=== PATIENT | male | born 1950 | race Caucasian/White ===

== ENCOUNTER 2016-11-08 17:17 | Emergency (ER) | payer OTHER, MEDICARE ==
[2016-11-08] MEDS: SODIUM CHLORIDE 0.9% 1,000 ML IV STA (17:17)
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
[2016-11-08 17:34] LABS: Glucose,Whole Blood 81 mg/dL (75-99)
--- NOTE | 2016-11-08 17:43 | XR ---
EXAMINATION TYPE: XR chest 1V portable DATE OF EXAM: 11/08/2016 5:32 PM HISTORY: Shortness of breath. COMPARISON: None. TECHNIQUE: Single view of the chest is submitted. FINDINGS: Demonstrated are scattered senescent parenchymal change. There is no evidence for focal infiltrate. The heart is stable. Hilar and mediastinal structures are within normal limits. Degenerative changes are seen of the dorsal spine. IMPRESSION: 1. Chronic changes without evidence for acute pulmonary disease.
--- NOTE | 2016-11-08 17:43 | XR ---
EXAMINATION TYPE: XR pelvis AP view DATE OF EXAM: 11/08/2016 5:32 PM CLINICAL HISTORY: pain TECHNIQUE: Single view the pelvis is submitted. FINDINGS: No evidence for fracture, dislocation or bony lesion. Joint spaces are well-preserved. S I joints appear symmetric. IMPRESSION: 1. No acute fracture or dislocation seen. ICD 10 NO FRACTURE, INITIAL EVALUATION
[2016-11-08 18:10] LABS: Basophils % (A) 1 %; CH 32.3; CHCM 34.4; Eosinophils # (A) 0.2 k/uL (0-0.7); Eosinophils % (A) 3 %; HCT 39.6 % (39.0-53.0); HDW 2.65; HGB 13.3 gm/dL (13.0-17.5); Luc # (Auto) 0.14; Luc % (Auto) 2; Lymphocytes # (A) 0.9 k/uL (1.0-4.8); Lymphocytes % (A) 13 %; MCH 31.7 pg (25.0-35.0); MCHC 33.7 g/dL (31.0-37.0); MCV 94.3 fL (80.0-100.0); Mean Platelet Volume 6.5; Monocytes # (A) 0.4 k/uL (0-1.0); Monocytes % (A) 6 %; Neutrophils # (A) 5.1 k/uL (1.3-7.7); Neutrophils % (A) 75 %; RDW 13.9 % (11.5-15.5); WBC 6.8 k/uL (3.8-10.6); WBC (Perox) 7.05
[2016-11-08] MEDS: MORPHINE SULFATE 4 MG/ML SYRINGE IVP STA (18:13)
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
[2016-11-08 18:21] LABS: ALT 37 U/L (21-72); AST 33 U/L (17-59); Alcohol <10 mg/dL; Alkaline Phosphatase 89 U/L (38-126); Amylase 80 U/L (30-110); Anion Gap 9 mmol/L; Blood Urea Nitrogen 22 mg/dL (9-20); Calcium 9.2 mg/dL (8.4-10.2); Carbon Dioxide 24 mmol/L (22-30); Chloride 106 mmol/L (98-107); Glucose 90 mg/dL (74-99); INR 1.1 (<1.1); Non-African American GFR(MDRD) >60 (>60 ml/min/1.73 sqM); Partial Thromboplastin Time 28.3 sec (22.0-30.0); Potassium 4.3 mmol/L (3.5-5.1); Sodium 139 mmol/L (137-145); Total Bilirubin 0.8 mg/dL (0.2-1.3); Total Protein 6.8 g/dL (6.3-8.2)
[2016-11-08 18:30] LABS: Creatine Kinase 319 U/L (55-170)
--- NOTE | 2016-11-08 18:41 | XR ---
EXAMINATION TYPE: XR knee complete RT DATE OF EXAM: 11/08/2016 6:37 PM CLINICAL HISTORY: pain TECHNIQUE: Frontal, lateral and oblique images of the right foot are obtained. COMPARISON: None. FINDINGS: There is no acute fracture/dislocation evident. Chronic appearing subchondral lesion media l femoral condyle. Small joint effusion noted. Mild degenerative narrowing medial tibiofemoral joint space. IMPRESSION: There is no acute fracture or dislocation. ICD 10 NO FRACTURE, INITIAL EVALUATION
[2016-11-08 18:44] LABS: Troponin I <0.012 ng/mL (0.000-0.034)
[2016-11-08 18:45] LABS: Creatine Kinase MB 5.3 ng/mL (0.0-2.4)
[2016-11-08 19:57] VITALS: BP 148/93; PULSE 73; RESP 18; TEMP 97.6
== END 2016-11-08 19:56 | disposition home or self-care (01) ==
LOC: EC 17:17
DX: S00.03XA Contusion of scalp, initial encounter (principal); M25.561 Pain in right knee; E78.5 Hyperlipidemia, unspecified; I10 Essential (primary) hypertension; G89.29 Other chronic pain; Z79.02 Long term (current) use of antithrombotics/antiplatelets; Z79.82 Long term (current) use of aspirin; Z79.899 Other long term (current) drug therapy; Z98.890 Other specified postprocedural states; V43.52XA Car driver injured in collision with other type car in traffic accident, initial encounter; Y92.410 Unspecified street and highway as the place of occurrence of the external cause
CPT/HCPCS: 36415; 93005; 86900; 86901; 80053; 82150; 82550; 82553; 83690; 84484; 85025; 85610; 85730; 86850; 80320; 71010; 72170; 73562; 72125; 70486; 70450; 99285; 96374; 96361 ×3; J2270

== ENCOUNTER → 2016-12-13 | Outpatient (CLI) | payer OTHER ==
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
== END | disposition home or self-care (01) ==
LOC: RADMRIMAIN 18:39
PROVIDERS: ATTEND Family Medicine
DX: R51 Headache (principal)
CPT/HCPCS: 70553; A9577

== ENCOUNTER → 2017-02-01 | Outpatient (CLI) | payer MEDICARE | END | disposition home or self-care (01) | LOC: LABPAT 15:29 | PROVIDERS: ATTEND Orthopaedic Surgery | DX: Z01.812 Encounter for preprocedural laboratory examination (principal) | CPT/HCPCS: 87070 ==

== ENCOUNTER → 2017-02-06 | Outpatient (CLI) | payer MEDICARE ==
[2017-02-06 18:56] LABS: Basophils % (A) 0 %; CH 31.9; CHCM 34.4; Eosinophils % (A) 0 %; HCT 38.8 % (39.0-53.0); HDW 2.49; HGB 13.4 gm/dL (13.0-17.5); Luc # (Auto) 0.05; Luc % (Auto) 1; Lymphocytes # (A) 0.4 k/uL (1.0-4.8); Lymphocytes % (A) 6 %; MCH 32.2 pg (25.0-35.0); MCHC 34.6 g/dL (31.0-37.0); MCV 93.2 fL (80.0-100.0); Mean Platelet Volume 7.6; Monocytes # (A) 0.3 k/uL (0-1.0); Monocytes % (A) 5 %; Neutrophils # (A) 5.7 k/uL (1.3-7.7); Neutrophils % (A) 88 %; Potassium 4.5 mmol/L (3.5-5.1); RBC 4.17 m/uL (4.30-5.90); RDW 13.1 % (11.5-15.5); WBC 6.5 k/uL (3.8-10.6); WBC (Perox) 6.51
[2017-02-06 18:58] LABS: Partial Thromboplastin Time 30.1 sec (22.0-30.0); Prothrombin Time 10.4 sec (9.0-12.0)
== END | disposition home or self-care (01) ==
LOC: MMGSC 11:49
PROVIDERS: ATTEND Family Medicine
DX: Z01.812 Encounter for preprocedural laboratory examination (principal)
CPT/HCPCS: 36415; 80051; 85025; 85610; 85730

== ENCOUNTER → 2017-02-12 | Outpatient (CLI) | payer OTHER ==
--- NOTE | 2017-02-12 15:44 | MR ---
EXAMINATION TYPE: MR angio head wo con DATE OF EXAM: 02/12/2017 COMPARISON: NONE HISTORY: headaches and cervicalgia per order. TECHNIQUE: Time of flight images focusing on the [place] of [place] were performed without contrast.. 2-D and 3-D postprocessing imaging is performed. FINDINGS: There is dominant left vertebral artery. Vertebral arteries are patent to basilar junction. There is no significant stenosis or aneurysmal change in the posterior circulation. There are hypopl astic posterior communicating arteries noted bilaterally. Images of the anterior circulation show patent anterior communicating artery. There is tiny eccentric aneurysm at right anterior communicating artery along right anterior medial margin measuring 9 mm on image 77 series 301 near right origin. There is no significant focal stenosis or other aneurysmal ch lawanda identified. 

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
== END | disposition home or self-care (01) ==
LOC: RADMRIMAIN 14:36
PROVIDERS: ATTEND Physician Assistant
DX: M43.12 Spondylolisthesis, cervical region (principal); M47.812 Spondylosis without myelopathy or radiculopathy, cervical region; R51 Headache
CPT/HCPCS: 70544; 72141

== ENCOUNTER 2017-02-20 07:45 | Inpatient (IN) | payer MEDICARE ==
[2017-02-13 17:07] VITALS: BMI 28.1
--- NOTE | 2017-02-19 14:57 | HP ---
CHIEF COMPLAINT: Right knee pain. 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 He notes he limps. In addition, he has swelling and pain worse with activity. It does significantly limit him. He had a previous arthroscopy last year. PAST MEDICAL HISTORY: Significant for coronary artery disease, hypertension, arthritis. Past surgical history significant for left shoulder arthroscopy in addition to right knee arthroscopy and cardiac catheterization. Current medications: 1. Losartan. 2. [place]. 3. Plavix. 4. Aspirin. 5. Lipitor. 6. Toprol. ALLERGIES: BONNIE INHIBITORS. FAMILY HISTORY: Negative. SOCIAL HISTORY: Negative for current tobacco or alcohol use. 16 point review of systems reviewed and is noncontributory. On examination, the patient is approximately 5 feet 8 inches, 195 pounds of mesomorphic habitus. HEENT Exam is nonfocal. Neck is supple. He has painless passive motion of the right hip. Straight leg raise is negative. Active motion of the right knee -10 to 130 degrees of flexion. He has a mild effusion. He is tender about the medial joint line. Collaterals are stable. Lachmans negative. [place] is equivocal. His distal neurovascular exam appears to be intact. X-rays to include weight bearing, notch, lateral and merchant views of the right knee obtained in the office shows severe medial compartment narrowing. There is flattening of the medial femoral condyle. IMPRESSION: Right knee severe medial compartment osteoarthrosis. RECOMMENDATIONS: I talked to the patient at length regarding his treatment options. At this point, he opts to proceed with surgery. We will plan on proceeding with right total knee arthroplasty. Risks and benefits are discussed at length in laymans terms. The patient underwent preoperative medical evaluation by Dr. Guajardo in addition to preoperative cardiac evaluation and we will likely reinstitute his Plavix postoperatively. SAMINA
[~2017-02-20 07:45] MED LIST: ACETAMINOPHEN TAB 500 MG TAB PO ONE; FAMOTIDINE 20 MG/2 ML VIAL IV PRN; HYDROmorphone 1 MG/ML 1 ML SYRINGE IVP PRN; LIDOCAINE 1% 20 ML VIAL (10MG/ML) FOR IV START INTRADERMA PRN; MELOXICAM 7.5 MG TAB PO ONE; MIDAZOLAM 2 MG/2 ML VIAL IV PRN; ONDANSETRON 4 MG/2 ML VIAL IVP PRN; TRANEXAMIC ACID 1,000 MG in SODIUM CHLORIDE 0.9% 100 ML IVPB ONE; ceFAZolin 2 GM in SODIUM CHLORIDE 0.9% 100 ML IVPB ONE
[2017-02-20] MEDS: LACTATED RINGERS 1,000 ML IV SCH ×2 (09:19→20:05)
[2017-02-20] MEDS ORDERED: fentaNYL (PF) 50 MCG/ML 2 ML AMP IV ONE (09:41)
[2017-02-20] MEDS ORDERED: ROPIVACAINE 246.25 MG, EPINEPHrine 0.5 MG, KETOROLAC 30 MG, cloNIDine HCL/PF 80 MCG, WA... MISCELLANE ONE ×5 (09:52)
--- NOTE | 2017-02-20 10:06 | P.ONQ ---
Anesthesiology Proc Note - PNB - Peripheral Nerve Block Performed Right Adductor Canal Infusion Time Out Performed: Yes Indication: Acute Post-Operative Pain, Analgesia Specifically requested for management of pain by : Micah Thompson Sedation Type: Sedate with meaningful contact maintained Preparation: Sterile Prep Position: Supine Catheter: Indwelling Needle Types: Other (see comment) (PaJunk) Needle Size: 100mm (4") Needle Gauge: 20 Technique: Ultrasound Injectate: 0.5% Ropivacaine (see comment for volume) (20 cc) Blood Aspirated: No Pain Paresthesia on Injection Noted: No Resistance on Injection: Normal Events: Uneventful and Well Tolerated
[2017-02-20] MEDS ORDERED: ROPIVACAINE 1,100 MG, SODIUM CHLORIDE 0.9% 330 ML MISCELLANE PRN ×2 (10:07)
[2017-02-20] MEDS ORDERED: ceFAZolin 3,000 MG in SODIUM CHLORIDE 0.9% IRRIGATIO 3,000 ML IRRIGATION ONE (10:14)
[2017-02-20] MEDS ORDERED: MIDAZOLAM 2 MG/2 ML VIAL ONE (10:14)
[2017-02-20] MEDS ORDERED: ePHEDrine 50 MG/ML 1 ML AMP ONE (10:14)
[2017-02-20] MEDS ORDERED: PROPOFOL 10 MG/ML 20 ML VIAL IV ONE (10:14)
[2017-02-20] MEDS ORDERED: LIDOCAINE 1% INJ 10MG/ML (20 ML MDV) ONE (10:14)
[2017-02-20] MEDS ORDERED: LACTATED RINGERS 1,000 ML IV ONE (10:54)
[2017-02-20] MEDS ORDERED: ACETAMINOPHEN TAB 325 MG TAB PO PRN (12:00)
[2017-02-20] MEDS ORDERED: HYDROmorphone 1 MG/ML 1 ML SYRINGE IVP PRN (12:00)
[2017-02-20] MEDS ORDERED: NALOXONE 0.4 MG/ML 1 ML VIAL IV PRN (12:00)
[2017-02-20] MEDS ORDERED: ONDANSETRON 4 MG/2 ML VIAL IVP PRN (12:00)
[2017-02-20] MEDS ORDERED: HYDROcodone/APAP 7.5-325MG 1 EACH TAB PO PRN (12:00)
[2017-02-20] MEDS ORDERED: MAGNESIUM HYDROXIDE 2,400 MG/10 ML CUP PO PRN (12:00)
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
--- NOTE | 2017-02-20 12:40 | XR ---
EXAMINATION TYPE: XR knee limited RT DATE OF EXAM: 02/20/2017 CLINICAL HISTORY: pain TECHNIQUE: Three views of the right knee are obtained. COMPARISON: None. FINDINGS: There is no acute fracture/dislocation. The tri-compartment joint spaces appear within no rmal limits. The overlying soft tissue appears unremarkable. IMPRESSION: There is no acute fracture or dislocation.ICD 10 NO FRACTURE, INITIAL EVALUATION
[2017-02-20] MEDS: traMADol 50 MG TAB PO SCH ×3 (16:22→21:02)
[2017-02-20] MEDS: LOSARTAN 50 MG TAB PO SCH (16:26)
[2017-02-20] MEDS: ceFAZolin 2 GM in SODIUM CHLORIDE 0.9% 100 ML IVPB SCH (16:26)
[2017-02-20] MEDS: ISOSORBIDE MONONITRATE ER 30 MG TAB.ER.24H PO SCH (16:26)
[2017-02-20] MEDS ORDERED: hydrALAZINE HCL 20 MG/ML 1 ML VIAL IVP PRN (16:34)
[2017-02-20] MEDS: HYDROcodone/APAP 7.5-325MG 1 EACH TAB PO PRN (17:05)
[2017-02-20] MEDS: SENNOSIDES-DOCUSATE SODIUM 1 EACH TAB PO SCH (20:03)
[2017-02-20 20:28] VITALS: RESP 16
[2017-02-20] MEDS ORDERED: ENOXAPARIN 30 MG/0.3 ML SYRINGE SQ SCH (21:00)
[2017-02-21] MEDS: ceFAZolin 2 GM in SODIUM CHLORIDE 0.9% 100 ML IVPB SCH ×2
[2017-02-21] MEDS: HYDROcodone/APAP 7.5-325MG 1 EACH TAB PO PRN ×4 (00:01→17:55)
[2017-02-21] MEDS: traMADol 50 MG TAB PO SCH ×4 (07:50→21:03)
[2017-02-21] MEDS: ATORVASTATIN 40 MG TAB PO SCH (07:51)
[2017-02-21] MEDS: LOSARTAN 50 MG TAB PO SCH (07:51)
[2017-02-21] MEDS: FAMOTIDINE 20 MG TAB PO SCH (07:51)
[2017-02-21] MEDS: ISOSORBIDE MONONITRATE ER 30 MG TAB.ER.24H PO SCH (07:51)
[2017-02-21] MEDS: CLOPIDOGREL 75 MG TAB PO SCH (07:51)
[2017-02-21] MEDS: METOPROLOL SUCCINATE (ER) 50 MG TAB.ER.24H PO SCH (07:51)
[2017-02-21 08:20] LABS: Basophils % (A) 0 %; CHCM 33.4; Eosinophils # (A) 0.2 k/uL (0-0.7); Eosinophils % (A) 3 %; HCT 32.9 % (39.0-53.0); HDW 2.58; HGB 11.2 gm/dL (13.0-17.5); Luc # (Auto) 0.11; Luc % (Auto) 2; Lymphocytes # (A) 0.7 k/uL (1.0-4.8); Lymphocytes % (A) 10 %; MCH 32.9 pg (25.0-35.0); MCHC 34.1 g/dL (31.0-37.0); MCV 96.5 fL (80.0-100.0); Mean Platelet Volume 7.7; Monocytes # (A) 0.4 k/uL (0-1.0); Monocytes % (A) 5 %; Neutrophils # (A) 5.3 k/uL (1.3-7.7); Neutrophils % (A) 80 %; RBC 3.42 m/uL (4.30-5.90); WBC 6.6 k/uL (3.8-10.6)
[2017-02-21] MEDS: ASPIRIN 81 MG CHEW PO SCH (09:06)
--- NOTE | 2017-02-21 11:12 | P.PN ---
Progress Note - Text 0715 anesthesia POD 1. Patient is status post right TKR under spinal anesthesia with a right adductor canal catheter placed for postoperative pain relief. With ropivacaine 0.2% running at 8 mL per hour patient reports good anterior knee pain relief with a VAS of 2 at rest and 4 with ambulation. Catheter site is intact clean and dry.
--- NOTE | 2017-02-21 11:25 | P.PN ---
Subjective Principal diagnosis: Status post right total knee arthroplasty Patient is seen today resting in his hospital bed, he appears comfortable. His pain is controlled with current meds. He is done well with therapy, his urinary catheters been discontinued. Patient denies any headaches, lightheadedness, chest pain, shortness of breath. Objective - Vital Signs Vital signs: Vital Signs Temp 98.3 F 02/21/17 07:00 Pulse 75 02/21/17 02:00 Resp 16 02/21/17 07:00 BP 133/72 02/21/17 07:00 Pulse Ox 96 02/21/17 07:00 Intake & Output 02/20/17 02/21/17 02/21/17 18:59 06:59 18:59 Intake Total 1601 540 180 Output Total 1270 1560 1000 Balance 331 -1020 -820 Intake: IV 1601 540 Lactated Ringers 1,000 ml 440 @ 40 mls/hr IV .Q24H KO Rx#:[id number] ceFAZolin 2 gm In Sodium 100 Chloride 0.9% 100 ml @ 100 mls/hr IVPB Q8HR KO Rx#:[id number] Oral 180 Output: Drainage 100 210 Right Knee 100 210 Urine 600 1350 1000 Uretheral (Traylor) 1350 1000 Stool 480 Estimated Blood Loss 90 Other: Voiding Method Indwelling Catheter Indwelling Catheter Indwelling Catheter # Bowel Movements 1 - Exam Right lower extremity: Incisions clean, dry and intact. Minimal ecchymosis present around the incision , minimal soft tissue swelling. Calf is soft, no tenderness with palpation. Plantar flexion, dorsiflexion, EHL, FHL are intact. Sensory exam to light touch is intact, dorsal pedis pulses 2+. - Labs CBC & Chem 7: 02/21/17 07:58 Labs: Abnormal Lab Results - Last 24 Hours (Table) 02/21/17 Range/Units 07:58 RBC 3.42 L (4.30-5.90) m/uL Hgb 11.2 L (13.0-17.5) gm/dL Hct 32.9 L (39.0-53.0) % Lymphocytes # 0.7 L (1.0-4.8) k/uL Assessment and Plan Plan: Assessment: 1. Postop day 1 status post right total knee arthroplasty Plan: 1. Pain control, continue use of oral medication 2. Continue with therapy and CPM 3. Ice and elevate/daily dressing changes 4. Encourage incentive spirometer 5. GI and DVT prophylaxis, continue home dose of Plavix 6. Medical recommendations 7. Discharge planning: Patient will be likely discharged home tomorrow Time with Patient: Less than 30
--- NOTE | 2017-02-21 11:28 | P.DS ---
Providers Date of admission: 02/20/17 07:45 Expected date of discharge: 02/22/17 Attending physician: Micah Thompson Consults: 02/20/17 12:04 Consult Physician Routine Consulting Provider: Steffanie Vazquez Consult Reason/Comments: Medical Management Do you want consulting provider notified?: Yes Primary care physician: [facility] Course: Date of admission: 02/20/2017 Date of discharge: 02/22/2017 Admission diagnosis: Status post right total knee arthroplasty Discharge diagnosis: Same Attending physician: Dr. Thompson Surgical procedures: Right total knee arthroplasty Brief history: Patient is a 66-year-old male with a history of progressive primary right knee osteoarthritis. At this point patient has failed conservative treatment measures and has opted to proceed with a elective right total knee arthroplasty. Hospital course: Details of patient's surgery can be found in operative report. Patient tolerated the procedure well and was subsequently transported to orthopedic floor. Patient's orthopeidc and medical care was provided daily. Patient had daily laboratory tests performed for evaluation of overall blood counts. Patient had daily physical therapy to include strengthening range of motion as well as education with walker ambulation. Patient had daily CPM usage as part of their physical therapy program. Patient was treated with Plavix for their postoperative DVT prophylaxis during their inpatient stay. Patient was noted to have a relatively uneventful postoperative course. Patient reported satisfactory pain control with oral pain medications by postoperative day 0. Patient showed satisfactory progress with physical therapy. Patient moved steadily through the program and had no difficulty meeting the goals by postoperative day 2. Given patient's otherwise satisfactory course and having met physical therapy goals, plan is to discharge patient home on postoperative day 2. Discharge condition/disposition: Patient will be discharged home in stable condition. Discharge medications: Instructions are given on resumption of patient's normal daily medications per primary care recommendation, in addition patient will be prescribed [place] 10 mg/325 mg, tramadol 50 mg, Colace 100 mg, Pepcid 20 mg. Discharge instructions: 1. Wound care and infection precautions, keep incision dry and covered while showering, no lotions, creams, moisturizers. No soaking, tubs, pools, hottubs. Do not scrub over the incision. 2. Weight-bear as tolerated] with walker / cane until follow-up. 3. Ice and elevate when necessary. Do not exceed 20 minutes per hour with ice pack. 4. Utilize compression sleeve until seen at first follow up appointment. 5. Visiting nursing care. 6. Home physical therapy [including home CPM]. 7. Pain meds and anticoagulants per prescription. 8. Pain medication has potential to cause constipation. Increase oral fluid and fiber intake. Contact primary care provider if you have not had a bowel movement within 48 hours after discharge 9. No anti-inflammatory medication until discussed at first post operative visit, this including Motrin, Aleve, Mobic, Diclofenac. 10. Follow up in office at 2 weeks postop with Joshua Henning PA-C 11. Follow up with your primary care doctor 7-10 days after discharge. 12. Contact [facility] with any questions, . Procedures: Right total knee arthroplasty Patient Condition at Discharge: Good Plan - Discharge Summary New Discharge Prescriptions: New Docusate [Colace] 100 mg PO DAILY #30 capsule Famotidine [Pepcid] 20 mg PO DAILY #30 tablet Hydrocodone/Acetaminophen [[place] 10-325] 1 - 2 each PO Q6H PRN #60 tab PRN Reason: Pain traMADol HCl [Ultram] 50 mg PO Q6H PRN #40 tab PRN Reason: Pain No Action Pseudoephedrine [Sudafed] 30 mg PO DAILY PRN PRN Reason: Congestion Fish Oil/Dha/Epa [Fish Oil 1,200 mg Fish Oil] 1 cap PO DAILY Clopidogrel [Plavix] 75 mg PO DAILY Metoprolol Succinate (ER) [Toprol Xl] 50 mg PO DAILY Losartan [Cozaar] 50 mg PO DAILY Isosorbide Mononitrate ER [Imdur] 30 mg PO DAILY Atorvastatin [Lipitor] 40 mg PO DAILY Aspirin EC [Ecotrin Low Dose] 81 mg PO DAILY Naproxen Sodium [Aleve] 440 mg PO DAILY PRN PRN Reason: Pain Discharge Medication List Aspirin EC [Ecotrin Low Dose] 81 mg PO DAILY 11/08/16 [History] Atorvastatin [Lipitor] 40 mg PO DAILY 11/08/16 [History] Clopidogrel [Plavix] 75 mg PO DAILY 11/08/16 [History] Fish Oil/Dha/Epa [Fish Oil 1,200 mg Fish Oil] 1 cap PO DAILY 11/08/16 [History] Isosorbide Mononitrate ER [Imdur] 30 mg PO DAILY 11/08/16 [History] Losartan [Cozaar] 50 mg PO DAILY 11/08/16 [History] Metoprolol Succinate (ER) [Toprol Xl] 50 mg PO DAILY 11/08/16 [History] Pseudoephedrine [Sudafed] 30 mg PO DAILY PRN 11/08/16 [History] Naproxen Sodium [Aleve] 440 mg PO DAILY PRN 02/13/17 [History] Docusate [Colace] 100 mg PO DAILY #30 capsule 02/22/17 [Rx] Famotidine [Pepcid] 20 mg PO DAILY #30 tablet 02/22/17 [Rx] Hydrocodone/Acetaminophen [[place] 10-325] 1 - 2 each PO Q6H PRN #60 tab 02/22/17 [Rx] traMADol HCl [Ultram] 50 mg PO Q6H PRN #40 tab 02/22/17 [Rx] Follow up Appointment(s)/Referral(s): Pk Henning PAC [PHYSICIAN RESEARCH ASSOCIATE PROFESSOR] - 2 Weeks Patient Instructions/Handouts: Knee Replacement (DC) Activity/Diet/Wound Care/Special Instructions: Orthopedic Discharge Instructions: 1. Wound care and infection precautions, keep incision dry and covered while showering, no lotions, creams, moisturizers. No soaking, pools, hot tubs. Do not scrub over incision. 2. Weight-bear as tolerated with walker / cane until follow-up. 3. Ice and elevate when necessary. Do not exceed 20 minutes per hour with ice pack. 4. Utilize compression sleeve until seen at first follow up appointment. 5. Visiting nursing care. 6. Home physical therapy including home CPM. 7. Pain meds and anticoagulants per prescription. 8. Pain medication has potential to cause constipation. Increase oral fluid and fiber intake. Contact primary care provider if you have not had a bowel movement within 48 hours after discharge. 9. No anti-inflammatory medication until discussed at first post operative visit, this including Motrin, Aleve, Mobic, Diclofenac. 10. Follow up in office at 2 weeks postop with Joshua Henning PA-C 11. Follow up with your primary care doctor 7-10 days after discharge. 12. Contact [facility] with any questions, . [facility] Care:[phone] Discharge Disposition: HOME WITH HOME HEALTH SERVICES
--- NOTE | 2017-02-21 15:02 | P.CONS ---
History of Present Illness - Reason for Consult Consult date: 02/21/17 Medical management - History of Present Illness This is a 66-year-old male patient of Dr. Lr with past medical history of coronary artery disease with previous heart catheterization in 2014 finding severe stenosis of the left circumflex with moderate to severe stenosis in the right coronary artery status post stent of the distal left circumflex, hyperlipidemia, hypertension, chronic pain, osteoarthritis. Patient was previously cleared by his cork insulation installer Dr. Tobin before surgery and underwent a Lexiscan stress test in December at [facility] which was negative. Patient is admitted under the care of Dr. Thompson status post right total knee arthroplasty. Patient denies any complaints. He is tolerating his diet. His pain is controlled. He has had no hypotension. Review of Systems All systems: negative Constitutional: Denies chills, Denies fever Eyes: denies blurred vision, denies pain Ears, nose, mouth and throat: Denies headache, Denies sore throat Cardiovascular: Denies chest pain, Denies shortness of breath Respiratory: Denies cough Gastrointestinal: Denies abdominal pain, Denies diarrhea, Denies nausea, Denies vomiting Musculoskeletal: Denies myalgias Musculoskeletal: right: knee pain, knee stiffness, knee swelling Integumentary: Denies pruritus, Denies rash Neurological: Denies numbness, Denies weakness Psychiatric: Denies anxiety, Denies depression Endocrine: Denies fatigue, Denies weight change Past Medical History Past Medical History: Coronary Artery Disease (CAD), Hyperlipidemia, Hypertension, Osteoarthritis (OA) Additional Past Medical History / Comment(s): chronic pain History of Any Multi-Drug Resistant Organisms: None Reported Past Surgical History: Orthopedic Surgery Additional Past Surgical History / Comment(s): Arthroscopy 2 times on the left knee, arthroscopy on the right knee, right total knee arthroplasty, bilateral rotator cuff repair, heart cath with stenting of the left circumflex Past Anesthesia/Blood Transfusion Reactions: No Reported Reaction Past Psychological History: No Psychological Hx Reported Smoking Status: Never smoker Past Alcohol Use History: Rare Additional Past Alcohol Use History / Comment(s): Patient is a lifelong nonsmoker. He denies any medical marijuana, marijuana, street drug use. 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 He lives at home with his . Past Drug Use History: None Reported - Past Family History Mother Family Medical History: No Reported History Additional Family Medical History / Comment(s): Mother at age 91 with history of hypertension. Father Additional Family Medical History / Comment(s): Father at age 86 with history of hypertension. Brother(s) Additional Family Medical History / Comment(s): Patient has one brother with history of hypertension and osteoarthritis. Patient has one sister with history of CVA. Patient is 3 children, one daughter with electrical issue with her heart, 2 sons and one has hypertension. Medications and Allergies Home Medications Medication Instructions Recorded Confirmed Type Aspirin EC [Ecotrin Low Dose] 81 mg PO DAILY 11/08/16 02/20/17 History Atorvastatin [Lipitor] 40 mg PO DAILY 11/08/16 02/20/17 History Clopidogrel [Plavix] 75 mg PO DAILY 11/08/16 02/20/17 History Fish Oil/Dha/Epa [Fish Oil 1,200 1 cap PO DAILY 11/08/16 02/20/17 History mg Fish Oil] HYDROcodone/APAP 7.5-325MG [[place] 1 tab PO BID PRN 11/08/16 02/20/17 History 7.5-325] Isosorbide Mononitrate ER [Imdur] 30 mg PO DAILY 11/08/16 02/20/17 History Losartan [Cozaar] 50 mg PO DAILY 11/08/16 02/20/17 History Metoprolol Succinate (ER) [Toprol 50 mg PO DAILY 11/08/16 02/20/17 History Xl] Pseudoephedrine [Sudafed] 30 mg PO DAILY PRN 11/08/16 02/20/17 History Naproxen Sodium [Aleve] 440 mg PO DAILY PRN 02/13/17 02/20/17 History Allergies Allergy/AdvReac Type Severity Reaction Status Date / Time No Known Allergies Allergy Verified 02/20/17 12:34 Physical Exam Vitals: Vital Signs Temp Pulse Resp BP Pulse Ox 02/21/17 07:00 98.3 F 16 133/72 96 02/21/17 02:00 97.1 F L 75 16 122/69 95 02/20/17 20:27 98.1 F 77 16 127/62 98 02/20/17 20:15 16 02/20/17 16:15 68 157/98 02/20/17 16:00 60 161/98 02/20/17 15:45 62 158/93 02/20/17 15:30 62 153/93 02/20/17 15:15 64 165/97 02/20/17 15:00 64 181/91 02/20/17 14:45 54 L 168/99 02/20/17 14:30 56 L 153/100 02/20/17 14:15 97.4 F L 71 17 146/89 98 02/20/17 13:45 55 L 16 145/96 97 02/20/17 13:08 71 16 148/72 96 Intake and Output 02/20/17 02/21/17 02/21/17 22:59 06:59 14:59 Intake Total 100 440 180 Output Total 341 312 3865 Balance -650 -470 -820 Intake: IV 100 440 Lactated Ringers 1,000 ml 440 @ 40 mls/hr IV .Q24H KO Rx#:[id number] ceFAZolin 2 gm In Sodium 100 Chloride 0.9% 100 ml @ 100 mls/hr IVPB Q8HR KO Rx#:[id number] Oral 180 Output: Drainage 100 210 Right Knee 100 210 Urine 671 295 2496 Uretheral (Traylor) 650 297 7814 Other: Voiding Method Indwelling Catheter Indwelling Catheter # Bowel Movements 1 Gen: This is a 66-year-old male sitting up in bed and appears to be in no acute distress. HEENT: Head is atraumatic, normocephalic. Pupils equal, round. Sclerae is anicteric. NECK: Supple. No JVD. No lymphadenopathy. No thyromegaly. LUNGS: Clear to auscultation. No wheezes or rhonchi. No intercostal retractions. HEART: Regular rate and rhythm. No murmur. ABDOMEN: Soft. Bowel sounds are present. No masses. No tenderness. EXTREMITIES: No pedal edema. No calf tenderness. Right knee has large dressing in place. NEUROLOGICAL: Patient is awake, alert and oriented x3. Cranial nerves 2 through 12 are grossly intact. Results CBC & Chem 7: 02/21/17 07:58 Labs: Abnormal Lab Results - Last 24 Hours (Table) 02/21/17 Range/Units 07:58 RBC 3.42 L (4.30-5.90) m/uL Hgb 11.2 L (13.0-17.5) gm/dL Hct 32.9 L (39.0-53.0) % Lymphocytes # 0.7 L (1.0-4.8) k/uL Assessment and Plan Plan: 1. Osteoarthritis status post right total knee arthroplasty in the care of Dr. Thompson. Continue pain management, PT OT, incentive spirometry to reduce incidence of atelectasis and hospital-acquired pneumonia. 2. Hypertension. Continue Cozaar 50 mg daily, Toprol-XL 50 mg daily, Imdur 30 mg daily. 3. Coronary artery disease status post stent of the left circumflex. Continue Imdur 30 mg daily, Plavix 75 mg daily, Lipitor 40 mg daily, aspirin 81 mg daily. 4. Hyperlipidemia. Continue statin. 5. DVT prophylaxis. 6. Gastric intestinal prophylaxis. Pepcid. Discharge plan: Home tomorrow Impression and plan of care have been directed as dictated by the signing physician. Yareli Lindo nurse practitioner acting as scribe for signing physician.
[2017-02-21] MEDS: HYDROmorphone 1 MG/ML 1 ML SYRINGE IVP PRN (21:00)
[2017-02-21] MEDS: SENNOSIDES-DOCUSATE SODIUM 1 EACH TAB PO SCH (21:03)
[2017-02-22] MEDS: HYDROcodone/APAP 7.5-325MG 1 EACH TAB PO PRN ×3 (00:22→12:59)
[2017-02-22] MEDS: HYDROmorphone 1 MG/ML 1 ML SYRINGE IVP PRN (02:59)
[2017-02-22] MEDS: LACTATED RINGERS 1,000 ML IV SCH (07:25)
[2017-02-22 08:09] VITALS: BP 151/81; PULSE 78; TEMP 98.2
[2017-02-22] MEDS: traMADol 50 MG TAB PO SCH ×2 (08:15→12:59)
[2017-02-22] MEDS: ATORVASTATIN 40 MG TAB PO SCH (08:15)
[2017-02-22] MEDS: LOSARTAN 50 MG TAB PO SCH (08:15)
[2017-02-22] MEDS: ISOSORBIDE MONONITRATE ER 30 MG TAB.ER.24H PO SCH (08:15)
[2017-02-22] MEDS: METOPROLOL SUCCINATE (ER) 50 MG TAB.ER.24H PO SCH (08:15)
[2017-02-22] MEDS: CLOPIDOGREL 75 MG TAB PO SCH (08:15)
[2017-02-22] MEDS: FAMOTIDINE 20 MG TAB PO SCH (08:15)
[2017-02-22] MEDS: ASPIRIN 81 MG CHEW PO SCH (08:16)
--- NOTE | 2017-02-22 08:39 | P.PN ---
Subjective Principal diagnosis: Status post right total knee arthroplasty Patient is seen today resting in his hospital bed, he appears comfortable. His pain is controlled with current meds. Patient denies any headaches, lightheadedness, chest pain, shortness of breath. Objective - Vital Signs Vital signs: Vital Signs Temp 98.2 F 02/22/17 07:00 Pulse 78 02/22/17 07:00 Resp 16 02/22/17 07:00 BP 151/81 02/22/17 07:00 Pulse Ox 96 02/22/17 01:35 Intake & Output 02/21/17 02/22/17 02/22/17 18:59 06:59 18:59 Intake Total 780 120 Output Total 1000 Balance -220 120 Intake: Oral 780 120 Output: Urine 1000 Uretheral (Traylor) 1000 Other: Voiding Method Indwelling Catheter # Voids 3 - Exam Right lower extremity: Incisions clean, dry and intact. Minimal ecchymosis present around the incision , minimal soft tissue swelling. Calf is soft, no tenderness with palpation. Plantar flexion, dorsiflexion, EHL, FHL are intact. Sensory exam to light touch is intact, dorsal pedis pulses 2+. - Labs CBC & Chem 7: 02/21/17 07:58 Assessment and Plan Plan: Assessment: 1. Postop day #2 status post right total knee arthroplasty Plan: 1. Pain control, continue use of oral medication 2. Continue with therapy and CPM 3. Ice and elevate/daily dressing changes 4. Encourage incentive spirometer 5. GI and DVT prophylaxis, continue home dose of Plavix 6. Medical recommendations 7. Discharge planning: Patient will be discharged home today Time with Patient: Less than 30
--- NOTE | 2017-02-22 12:24 | P.PN ---
Subjective This is a 66-year-old male patient of Dr. Lr with past medical history of coronary artery disease with previous heart catheterization in 2015 finding severe stenosis of the left circumflex with moderate to severe stenosis in the right coronary artery status post stent of the distal left circumflex, hyperlipidemia, hypertension, chronic pain, osteoarthritis. Patient was previously cleared by his emergency medicine Dr. Tobin before surgery and underwent a Lexiscan stress test in December at [facility] which was negative. Patient is admitted under the care of Dr. Thompson status post right total knee arthroplasty. Patient denies any complaints. He is tolerating his diet. His pain is controlled. He has had no hypotension. 02/22: No new complaints. Pain is controlled. Patient has had a bowel movement and urinating without difficulty. Patient is scheduled for discharge home today. Objective - Vital Signs Vital signs: Vital Signs Temp 98.2 F 02/22/17 07:00 Pulse 78 02/22/17 07:00 Resp 16 02/22/17 07:00 BP 151/81 02/22/17 07:00 Pulse Ox 96 02/22/17 01:35 Intake & Output 02/21/17 02/22/17 02/22/17 18:59 06:59 18:59 Intake Total 780 120 Output Total 1000 Balance -220 120 Intake: Oral 780 120 Output: Urine 1000 Uretheral (Traylor) 1000 Other: Voiding Method Indwelling Catheter # Voids 3 - Exam Gen: This is a 66-year-old male sitting up in bed and appears to be in no acute distress. HEENT: Head is atraumatic, normocephalic. Pupils equal, round. Sclerae is anicteric. NECK: Supple. No JVD. No lymphadenopathy. No thyromegaly. LUNGS: Clear to auscultation. No wheezes or rhonchi. No intercostal retractions. HEART: Regular rate and rhythm. No murmur. ABDOMEN: Soft. Bowel sounds are present. No masses. No tenderness. EXTREMITIES: No pedal edema. No calf tenderness. Right knee has large dressing in place. NEUROLOGICAL: Patient is awake, alert and oriented x3. Cranial nerves 2 through 12 are grossly intact. - Labs CBC & Chem 7: 02/21/17 07:58 Assessment and Plan Plan: 1. Osteoarthritis status post right total knee arthroplasty in the care of Dr. Thompson. Continue pain management, PT OT, incentive spirometry to reduce incidence of atelectasis and hospital-acquired pneumonia. 2. Hypertension. Continue Cozaar 50 mg daily, Toprol-XL 50 mg daily, Imdur 30 mg daily. 3. Coronary artery disease status post stent of the left circumflex. Continue Imdur 30 mg daily, Plavix 75 mg daily, Lipitor 40 mg daily, aspirin 81 mg daily. 4. Hyperlipidemia. Continue statin. 5. DVT prophylaxis. 6. Gastric intestinal prophylaxis. Pepcid. Discharge plan: Home Impression and plan of care have been directed as dictated by the signing physician. Yareli Lindo nurse practitioner acting as scribe for signing physician.
== END 2017-02-22 13:51 | disposition home health service (06) | DRG 470 ==
LOC: 2ORMAIN 07:45 → 3SUR 12:34
PROVIDERS: ADMIT Orthopaedic Surgery; ATTEND Orthopaedic Surgery
PROC: 0SRC0J9 Replacement of Right Knee Joint with Synthetic Substitute, Cemented, Open Approach (ICD-10-PCS; principal; 2017-02-20 09:45)
DX: M17.11 Unilateral primary osteoarthritis, right knee (principal); I10 Essential (primary) hypertension; E78.5 Hyperlipidemia, unspecified; I25.10 Atherosclerotic heart disease of native coronary artery without angina pectoris; Z79.02 Long term (current) use of antithrombotics/antiplatelets; Z79.899 Other long term (current) drug therapy; Z82.49 Family history of ischemic heart disease and other diseases of the circulatory system; Z95.5 Presence of coronary angioplasty implant and graft; Z79.82 Long term (current) use of aspirin; G89.29 Other chronic pain
CPT/HCPCS: 85025; 88300

== ENCOUNTER → 2017-03-30 | Outpatient (CLI) | payer MEDICARE ==
[2017-03-30 14:37] LABS: Basophils % (A) 1 %; CH 30.8; CHCM 33.6; Eosinophils # (A) 0.2 k/uL (0-0.7); Eosinophils % (A) 2 %; HCT 38.7 % (39.0-53.0); HDW 3.08; HGB 13.1 gm/dL (13.0-17.5); Luc # (Auto) 0.15; Luc % (Auto) 2; Lymphocytes # (A) 1.3 k/uL (1.0-4.8); Lymphocytes % (A) 20 %; MCH 31.2 pg (25.0-35.0); MCHC 33.8 g/dL (31.0-37.0); MCV 92.1 fL (80.0-100.0); Mean Platelet Volume 6.7; Monocytes # (A) 0.4 k/uL (0-1.0); Monocytes % (A) 5 %; Neutrophils # (A) 4.8 k/uL (1.3-7.7); Neutrophils % (A) 70 %; RDW 13.1 % (11.5-15.5); WBC 6.8 k/uL (3.8-10.6); WBC (Perox) 7.25
[2017-03-30 14:41] LABS: INR 1.1 (<1.2); Prothrombin Time 11.1 sec (9.0-12.0)
[2017-03-30 15:00] LABS: Potassium 4.4 mmol/L (3.5-5.1)
== END | disposition home or self-care (01) ==
LOC: LABPAT 14:12
PROVIDERS: ATTEND Orthopaedic Surgery
DX: Z01.812 Encounter for preprocedural laboratory examination (principal); M17.12 Unilateral primary osteoarthritis, left knee; Z79.01 Long term (current) use of anticoagulants
CPT/HCPCS: 36415; 80051; 85025; 85610; 85730

== ENCOUNTER 2017-04-03 08:00 | Inpatient (IN) | payer MEDICARE ==
[2017-03-26 13:33] VITALS: BMI 27.3
--- NOTE | 2017-03-30 15:10 | HP ---
HISTORY AND PHYSICAL CHIEF COMPLAINT: Left knee pain. HISTORY OF PRESENT ILLNESS: The patient is a 67-year-old body former who presents with progressive left knee pain secondary to osteoarthrosis, worsening over the past several years. He notes he has pain that limits his normal function and activities. He has intermittent swelling and stiffness. He has tried previous medications and injections in addition has had a previous arthroscopy. PAST MEDICAL HISTORY: Significant for arthritis, hypertension, and heart disease. PAST SURGICAL HISTORY: Significant for bilateral knee arthroscopy, right total knee arthroplasty, and cardiac stent placement. CURRENT MEDICATIONS: 1. Hyzaar. 2. Aleve. 3. Plavix. ALLERGIES: He denies drug allergies. FAMILY HISTORY: Negative. SOCIAL HISTORY: Negative for current tobacco or alcohol use. REVIEW OF SYSTEMS: Sixteen-point review of systems is otherwise reviewed and is noncontributory. PHYSICAL EXAMINATION: On examination, the patient is approximately 5 feet 8 inches, 195 pounds of mesomorphic habitus. HEENT exam is nonfocal. Neck is supple. He has painless passive motion of his left hip. Straight leg raise is negative. Active motion left knee -10 to 125 degrees of flexion. He has a trace effusion. He is tender about the medial joint line. Collaterals are stable, Rae's negative, Akua's is equivocal. He has genu varum alignment. His distal neurovascular appears intact in the left lower extremity. Previous x-rays of the left knee obtained in the office show severe medial compartment narrowing along with flattening of the medial femoral condyle. IMPRESSION: Left knee severe medial compartment osteoarthrosis. RECOMMENDATIONS: I talked to the patient at length regarding his treatment options. At this point, he is quite symptomatic and opts to proceed with surgery. We will plan to proceed with left total knee arthroplasty. We will reinstitute his Plavix postoperatively. MMODL / IJN: [id number] /
[~2017-04-03 08:00] MED LIST changes: +DEXAMETHASONE SOD PHOSPHATE 10 MG/ML 1 ML VIAL IV ONE; -FAMOTIDINE 20 MG/2 ML VIAL IV PRN; -MIDAZOLAM 2 MG/2 ML VIAL IV PRN; +ONDANSETRON 4 MG/2 ML VIAL IVP ONE; -ONDANSETRON 4 MG/2 ML VIAL IVP PRN; +SCOPOLAMINE 1.5MG/72HR PATCH TRANSDERM ONE
[2017-04-03] MEDS: LACTATED RINGERS 1,000 ML IV SCH (11:06)
[2017-04-03] MEDS ORDERED: MIDAZOLAM 2 MG/2 ML VIAL IV ONE (12:12)
[2017-04-03] MEDS ORDERED: ROPIVACAINE 1,100 MG, SODIUM CHLORIDE 0.9% 330 ML MISCELLANE PRN ×2 (12:53)
--- NOTE | 2017-04-03 12:55 | P.ONQ ---
Anesthesiology Proc Note - PNB - Peripheral Nerve Block Performed Left Adductor Canal Time Out Performed: Yes Indication: Acute Post-Operative Pain, Requested by physician (Dr Thompson) Sedation Type: Sedate with meaningful contact maintained Preparation: Sterile Dressing Position: Supine Catheter: Indwelling Needle Types: Other (see comment) (Jen) Needle Size: 100mm (4") Needle Gauge: 18 Injectate: 0.5% Ropivacaine (see comment for volume) (20cc) Blood Aspirated: No Pain Paresthesia on Injection Noted: No Resistance on Injection: Normal Events: Uneventful and Well Tolerated
[2017-04-03] MEDS ORDERED: ROPIVACAINE 246.25 MG, EPINEPHrine 0.5 MG, KETOROLAC 30 MG, cloNIDine HCL/PF 80 MCG, WA... MISCELLANE ONE ×5 (13:14)
[2017-04-03] MEDS ORDERED: MIDAZOLAM 2 MG/2 ML VIAL ONE (14:01)
[2017-04-03] MEDS ORDERED: ROPIVACAINE 5 MG/ML 30 ML VIAL ONE (14:01)
[2017-04-03] MEDS ORDERED: TRANEXAMIC ACID 1,000 MG/10 ML VIAL ONE (14:01)
[2017-04-03] MEDS ORDERED: fentaNYL (PF) 50 MCG/ML 2 ML AMP ONE (14:01)
[2017-04-03] MEDS ORDERED: SODIUM CHLORIDE 0.9% 100 ML BAG ONE (14:01)
[2017-04-03] MEDS ORDERED: diphenhydrAMINE 50 MG/ML 1 ML VIAL ONE (14:01)
[2017-04-03] MEDS ORDERED: ceFAZolin 3,000 MG in SODIUM CHLORIDE 0.9% IRRIGATIO 3,000 ML IRRIGATION ONE (14:58)
[2017-04-03] MEDS ORDERED: LACTATED RINGERS 1,000 ML IV ONE (15:50)
[2017-04-03] MEDS ORDERED: traMADol 50 MG TAB PO PRN (16:04)
[2017-04-03] MEDS ORDERED: MAGNESIUM HYDROXIDE 2,400 MG/10 ML CUP PO PRN (16:04)
[2017-04-03] MEDS ORDERED: ACETAMINOPHEN TAB 325 MG TAB PO PRN (16:04)
[2017-04-03] MEDS ORDERED: HYDROmorphone 1 MG/ML 1 ML SYRINGE IVP PRN (16:04)
[2017-04-03] MEDS ORDERED: NALOXONE 0.4 MG/ML 1 ML VIAL IV PRN (16:04)
[2017-04-03] MEDS ORDERED: ONDANSETRON 4 MG/2 ML VIAL IVP PRN (16:04)
--- NOTE | 2017-04-03 16:27 | P.OP ---
Date of Procedure: 04/03/17 Preoperative Diagnosis: Left knee severe tricompartmental osteoarthrosis-primary Postoperative Diagnosis: Same Procedure(s) Performed: Left total knee arthroplasty-cemented -cruciate retaining Implants: Depuy Attune size 8 cemented femoral component, size 7 cemented tibial component , 10 mm articular surface, 38 mm cemented patellar component. This is a cruciate retaining implant. Anesthesia: spinal Surgeon: Micah Thompson Network Project Manager #1: Pk Henning Estimated Blood Loss (ml): 75 Pathology: other (Bone fragments) Condition: stable Disposition: PACU Indications for Procedure: The patient is a 67-year-old male who presents to progressive left knee pain secondary osteoarthrosis despite conservative measures. A discussion of the risks and benefits of operative intervention versus continued conservative measures was made with patient. He opted to proceed with surgery. Operative risks to include infection, neurovascular injury, development of blood clots, possible component loosening, possible component failure and need for subsequent procedures was discussed. Informed consent was obtained. Operative Findings: As below Description of Procedure: The patient was brought to the operating room, and after induction of spinal anesthesia the left lower extremity was prepped and draped in normal fashion. The tourniquet was inflated to 270 mmHg. A longitudinal incision extending 3 finger breaths above the superior pole of patella extending to the medial aspect of the tibial tubercle was then made. The skin and subcutaneous tissues were divided sharply. Electrocautery was used for hemostasis. A medial parapatellar arthrotomy was performed. A medial soft tissues to include the superficial and deep portions of the medial collateral ligament as well as the medial hamstring tendons were elevated subperiosteally. The posterior medial corner was also elevated subperiosteally. The proximal medial tibial osteophytes were carefully removed. The patella was everted. A portion of the retropatellar fat pad was excised sharply. The anterior cruciate ligament was sacrificed. A starting hole was made in the distal femur 1 cm anterior to the posterior cruciate ligament origin. An intramedullary femoral guide was then gently inserted planning on 5 valgus distal cut with 9 mm distal resection. The cutting block was pinned in place. The distal cut was then made. The posterior referencing sizing guide was utilized. I felt size 8 was most appropriate. 3 of external rotation was built into the jig and was verified off the trans-epicondylar axis and the posterior condyles. The cutting block was pinned in place. The anterior, posterior, and chamfer cuts were then made. The bone fragments were then removed. The sulcus guide was placed in the sulcus cut was made with a sagittals saw. The trial size 8 femoral components placed and was fully seated. There was good anterior to posterior and medial to lateral fit. The distal peg holes were drilled. The trial component was removed. An extra medullary tibial guide was utilized in line with the tibial shaft and second metatarsal distally. I planned on 7 posterior slope. I planned on 2 mm resection from the medial compartment. The cutting block was pinned in place. The proximal tibial cut was made protecting the posterior cruciate ligament with a retractor. The bone was removed in one fragment. The tibia sized most appropriate size 7. The trial femoral and tibial components were placed along with a 9 mm articular surface. I did have continued medial tightness therefore I did piecrust a portion of the medial collateral ligament. I then was able to trial a size 10 articular surface and was able to obtain full flexion and extension with good stability with varus valgus stress. After several flexion and extension cycles, the tibial rotation was marked in line with the medial one third of the tibial tubercle. Attention was then paid towards preparing the patella. A patella reamer was utilized taking this down to 15 mm of bone stock. A good flush cut was made. The patella sized most probably a 38 mm. The peg holes were drilled. The trial components placed. The knee was then taken through range of motion. I had good patellofemoral tracking with no hands technique. The trial components were then removed. The posterior osteophytes off the distal femur were carefully removed with a curved osteotome. The tibia was prepared in the appropriate rotation with appropriate drill and keel punch. The flexion and extension gaps were checked and felt to be symmetric. The posterior soft tissues were injected with ropivacaine. The bony surfaces were prepared with pulsatile lavage and dried. The tibial component was then cemented placed and was fully seated. Excess cement was removed. The femoral component was cemented placed and was fully seated. Excess cement was removed. The trial 10 mm articular surface was placed and the knee was put in full extension. The patella component was cemented in place. After the cement had sufficiently hardened, the knee was again taken through range of motion. A trial 10 mm articular surface was removed and the final one inserted. This was fully seated. Care was taken to avoid any soft tissue interposition. Pulsatile lavage was again utilized. The medial parapatellar arthrotomy was closed with #2 Ethibond suture. The tourniquet was deflated with proximal 70 minutes total tourniquet time. He had minimal bleeding therefore did not place a deep drain. The subcu changed tissues were reapproximated with interrupted 2-0 Vicryl sutures. The skin was reapproximated with 3-0 subcuticular strata fix suture. Skin tape and adhesive was applied. A sterile dressing was applied. The patient was awoken from sedation and transferred to recovery room in good condition. Blood loss was estimated at 75 mL. No complications were incurred. Sponge and needle counts were correct at the end the case.
--- NOTE | 2017-04-03 16:33 | XR ---
EXAMINATION TYPE: XR knee limited LT DATE OF EXAM: 04/03/2017 COMPARISON: NONE HISTORY: Post knee replacement TECHNIQUE: 2 view left knee FINDINGS: Tibial and femoral components of in place. Soft tissue air is present from surgery. No acut e fractures are evident IMPRESSION: 1. No acute fracture post knee replacement
[2017-04-03] MEDS: HYDROcodone/APAP 10-325MG 1 EACH TAB PO PRN (20:59)
[2017-04-03] MEDS: SENNOSIDES-DOCUSATE SODIUM 1 EACH TAB PO SCH (21:00)
[2017-04-03] MEDS: ceFAZolin 2 GM in SODIUM CHLORIDE 0.9% 100 ML IVPB SCH (23:08)
[2017-04-04] MEDS: HYDROmorphone 1 MG/ML 1 ML SYRINGE IVP PRN ×7 (00:40→22:23)
[2017-04-04] MEDS: HYDROcodone/APAP 10-325MG 1 EACH TAB PO PRN ×3 (03:26→17:41)
[2017-04-04] MEDS: LACTATED RINGERS 1,000 ML IV SCH ×2 (06:02→17:43)
[2017-04-04 06:56] LABS: Basophils % (A) 0 %; CH 30.3; CHCM 32.6; Eosinophils % (A) 1 %; HCT 26.4 % (39.0-53.0); HDW 2.99; Luc # (Auto) 0.15; Luc % (Auto) 2; Lymphocytes # (A) 0.6 k/uL (1.0-4.8); Lymphocytes % (A) 8 %; MCH 31.5 pg (25.0-35.0); MCHC 33.8 g/dL (31.0-37.0); MCV 93.2 fL (80.0-100.0); Mean Platelet Volume 6.7; Monocytes # (A) 0.4 k/uL (0-1.0); Monocytes % (A) 6 %; Neutrophils # (A) 6.4 k/uL (1.3-7.7); Neutrophils % (A) 83 %; RBC 2.83 m/uL (4.30-5.90); RDW 13.1 % (11.5-15.5); WBC 7.7 k/uL (3.8-10.6); WBC (Perox) 8.07
[2017-04-04 07:33] LABS: HGB 8.9 gm/dL (13.0-17.5)
[2017-04-04] MEDS: FAMOTIDINE 20 MG TAB PO SCH (08:37)
[2017-04-04] MEDS: CLOPIDOGREL 75 MG TAB PO SCH (08:37)
[2017-04-04] MEDS: ceFAZolin 2 GM in SODIUM CHLORIDE 0.9% 100 ML IVPB SCH (08:40)
--- NOTE | 2017-04-04 08:44 | P.PN ---
Progress Note - Text The patient is status post left adductor canal catheter placement. The catheter was placed for postoperative pain control, status post total left arthroplasty. Ropivacaine 0.2% is infusing at 10 mLs per hour. The patient has no complaints of left lower extremity numbness or weakness. Patient's VAS score is 1-2-10. Assessment: Patient's adductor canal catheter is in place and working appropriately. Plan: continue infusion and adjust it as needed.
--- NOTE | 2017-04-04 11:50 | P.CONS ---
History of Present Illness - Reason for Consult Consult date: 04/03/17 Medical management Requesting physician: Micah Thompson - Chief Complaint Consult for medical management - History of Present Illness The patient is a 67-year-old male with a possible history of essential hypertension coronary artery disease with stenting 1 in the LAD in 2014 was admitted under Orthopedic service and is postop after having a left total knee replacement. The patient reports adequate pain control and that he is comfortable, she denies any chest pain or shortness of air, denies lower extremity swelling, palpitations, denies dizziness lightheadedness or confusion. Reports that he wants to eat denies any nausea and vomiting Or abdominal pain. Review of his records indicated the patient had a nuclear stress test done in December of this year that was normal. Review of Systems All other 14 point review of systems are negative except per HPI Past Medical History Past Medical History: Hypertension Additional Past Medical History / Comment(s): chronic pain History of Any Multi-Drug Resistant Organisms: None Reported Past Surgical History: Orthopedic Surgery Additional Past Surgical History / Comment(s): Arthroscopy 2 times on the left knee, arthroscopy on the right knee, right total knee arthroplasty, bilateral rotator cuff repair, heart cath with stenting of the left circumflex Past Anesthesia/Blood Transfusion Reactions: No Reported Reaction Date of Last Stent Placement:: 2014 Smoking Status: Never smoker - Past Family History Mother Family Medical History: No Reported History Additional Family Medical History / Comment(s): Mother at age 91 with history of hypertension. Father Additional Family Medical History / Comment(s): Father at age 86 with history of hypertension. Brother(s) Additional Family Medical History / Comment(s): Patient has one brother with history of hypertension and osteoarthritis. Patient has one sister with history of CVA. Patient is 3 children, one daughter with electrical issue with her heart, 2 sons and one has hypertension. Medications and Allergies Home Medications Medication Instructions Recorded Confirmed Type Aspirin EC [Ecotrin Low Dose] 81 mg PO DAILY 11/08/16 04/03/17 History Atorvastatin [Lipitor] 40 mg PO DAILY 11/08/16 04/03/17 History Clopidogrel [Plavix] 75 mg PO DAILY 11/08/16 04/03/17 History Fish Oil/Dha/Epa [Fish Oil 1,200 1 cap PO DAILY 11/08/16 04/03/17 History mg Fish Oil] Losartan [Cozaar] 50 mg PO DAILY 11/08/16 04/03/17 History Metoprolol Succinate (ER) [Toprol 50 mg PO DAILY 11/08/16 04/03/17 History Xl] Pseudoephedrine [Sudafed] 30 mg PO DAILY PRN 11/08/16 04/03/17 History Naproxen Sodium [Aleve] 440 mg PO DAILY PRN 02/13/17 04/03/17 History Famotidine [Pepcid] 20 mg PO DAILY #30 tablet 02/22/17 04/03/17 Rx traMADol HCl [Ultram] 50 mg PO Q6H PRN #40 tab 02/22/17 04/03/17 Rx Hydrocodone/Acetaminophen [[place] 1 - 2 tab PO Q6H PRN 04/03/17 04/03/17 History 10-325] Allergies Allergy/AdvReac Type Severity Reaction Status Date / Time No Known Allergies Allergy Verified 04/03/17 16:29 Physical Exam Vitals: Vital Signs Temp Pulse Resp BP Pulse Ox 04/03/17 17:00 59 L 16 121/67 100 04/03/17 16:45 65 14 116/73 04/03/17 16:30 64 18 111/65 98 04/03/17 16:17 97.8 F 83 16 117/67 95 04/03/17 11:02 97.6 F 83 16 135/66 97 Intake and Output 04/03/17 04/03/17 04/03/17 06:59 14:59 22:59 Intake Total 1211 500 Output Total 575 Balance 636 500 Intake: IV 1211 500 Output: Urine 500 Estimated Blood Loss 75 Constitutional: No acute distress, conversant, pleasant Eyes: Anicteric sclerae, moist conjunctiva, no lid-lag, PERRLA ENMT: NC/AT,Oropharynx clear, no erythema, exudates Neck:Supple, FROM, no masses, or JVD, No carotid bruits; No thyromegaly Lungs: Clear to auscultation, Clear to percussion, Normal respiratory effort, no accessory muscle use Cardiovascular: Heart regular in rate and rhythm, No murmurs, gallops, or rubs no peripheral edema Abdominal: Soft Nontender, nom distended, no guarding, no rebound or rigidity, Normoactive bowel sounds No hepatomegaly, No splenomegaly, No palpable mass No abdominal wall hernia noted Skin: Normal temperature, tone, texture, turgor, No induration No subcutaneous nodules, No rash, lesions, No ulcers Extremities:No digital cyanosis No clubbing, Pedal pulses intact and symmetrical Radial pulses intact and symmetrical Normal gait and station, No calf tenderness Psychiatric: Alert and oriented to person, place and time, Appropriate affect Intact judgement Neuro: Muscles Strength 5/5 in all 4 extremities, Sensation to light touch grossly present throughout, Cranial nerves II-XII grossly intact. No focal sensory deficits Results CBC & Chem 7: 04/04/17 06:17 Assessment and Plan Plan: Essential hypertension * Blood pressure slightly elevated we'll continue his home regimen for now Coronary artery disease with stenting * Continue perioperative beta blockers and aspirin, resume Plavix in morning Dyslipidemia Postop status post left total knee replacement * Referred to the orthopedic team for management DispositionThank you for allowing us to participate in the care of this patient. We will follow peripherally. Do not hesitate to contact us with questions. Someone can be reached from the [facility] hospitalist group at all hours of the day at [phone]. Time with Patient: Less than 30
--- NOTE | 2017-04-04 11:52 | P.PN ---
Subjective Principal diagnosis: Left total knee replacement. Coronary artery disease, essential hypertension Patient feeling much better today reports his pain is adequately controlled, is working with PT and with abdominal tovar with a walker. Denies any chest pain or shortness of breath, no acute events overnight Objective - Vital Signs Vital signs: Vital Signs Temp 97.2 F L 04/04/17 08:00 Pulse 68 04/04/17 08:00 Resp 18 04/04/17 08:00 BP 115/72 04/04/17 08:00 Pulse Ox 97 04/04/17 08:00 Intake & Output 04/03/17 04/04/17 04/04/17 18:59 06:59 18:59 Intake Total 1711 1250 Output Total 575 1525 700 Balance 1136 -275 -700 Weight 81.647 kg 81.647 kg Intake: IV 1711 Oral 1250 Output: Urine 500 1525 700 Uretheral (Traylor) 700 Estimated Blood Loss 75 Other: Voiding Method Indwelling Catheter Indwelling Catheter - Exam Constitutional: No acute distress, conversant, pleasant Eyes: Anicteric sclerae, moist conjunctiva, no lid-lag, PERRLA ENMT: NC/AT,Oropharynx clear, no erythema, exudates Neck:Supple, FROM, no masses, or JVD, No carotid bruits; No thyromegaly Lungs: Clear to auscultation, Clear to percussion, Normal respiratory effort, no accessory muscle use Cardiovascular: Heart regular in rate and rhythm, No murmurs, gallops, or rubs no peripheral edema Abdominal: Soft Nontender, nom distended, no guarding, no rebound or rigidity, Normoactive bowel sounds No hepatomegaly, No splenomegaly, No palpable mass No abdominal wall hernia noted Skin: Normal temperature, tone, texture, turgor, No induration No subcutaneous nodules, No rash, lesions, No ulcers Extremities:No digital cyanosis No clubbing, Pedal pulses intact and symmetrical Radial pulses intact and symmetrical Normal gait and station, No calf tenderness Psychiatric: Alert and oriented to person, place and time, Appropriate affect Intact judgement Neuro: Muscles Strength 5/5 in all 4 extremities, Sensation to light touch grossly present throughout, Cranial nerves II-XII grossly intact. No focal sensory deficits - Labs CBC & Chem 7: 04/04/17 06:17 Labs: Abnormal Lab Results - Last 24 Hours (Table) 04/04/17 Range/Units 06:17 RBC 2.83 L (4.30-5.90) m/uL Hgb 8.9 L D (13.0-17.5) gm/dL Hct 26.4 L (39.0-53.0) % Lymphocytes # 0.6 L (1.0-4.8) k/uL Assessment and Plan Plan: Essential hypertension * Blood pressure slightly elevated we'll continue his home regimen for now Coronary artery disease with stenting * Continue perioperative beta blockers and aspirin, continue with current medicinal therapy Dyslipidemia Postop status post left total knee replacement * Referred to the orthopedic team for management Disposition * Patient is stable we'll sign off today
--- NOTE | 2017-04-04 12:15 | P.PN ---
Subjective Principal diagnosis: Status post left total knee arthroplasty Patient seen today resting in his hospital bed, he appears comfortable. His pain is well-controlled. He's ambulated well with therapy. He denies any headaches, lightheadedness, chest pain, shortness of breath, fever chills. Objective - Vital Signs Vital signs: Vital Signs Temp 97.2 F L 04/04/17 08:00 Pulse 68 04/04/17 08:00 Resp 18 04/04/17 08:00 BP 115/72 04/04/17 08:00 Pulse Ox 97 04/04/17 08:00 Intake & Output 04/03/17 04/04/17 04/04/17 18:59 06:59 18:59 Intake Total 1711 1250 Output Total 575 1525 700 Balance 1136 -275 -700 Weight 81.647 kg 81.647 kg Intake: IV 1711 Oral 1250 Output: Urine 500 1525 700 Uretheral (Traylor) 700 Estimated Blood Loss 75 Other: Voiding Method Indwelling Catheter Indwelling Catheter - Exam Left lower extremity: Incisions clean, dry and intact. Calf soft, no tenderness with palpation. Plantar flexion, dorsiflexion, EHL, FHL are intact. Sensory exam to light touch throughout the extremities intact, dorsal pedis pulses 2+. - Labs CBC & Chem 7: 04/04/17 06:17 Labs: Abnormal Lab Results - Last 24 Hours (Table) 04/04/17 Range/Units 06:17 RBC 2.83 L (4.30-5.90) m/uL Hgb 8.9 L D (13.0-17.5) gm/dL Hct 26.4 L (39.0-53.0) % Lymphocytes # 0.6 L (1.0-4.8) k/uL Assessment and Plan Plan: Assessment: 1. Postop day #1 status post left total knee arthroplasty Plan: 1. Pain control, continue use of oral medication 2. Continue therapy and use of CPM 3. Ice and elevate/daily dressing changes 4. Encourage incentive spirometer 5. GI and DVT prophylaxis, has resumed home Plavix dose 6. Medical recommendations excellent 7. Discharge planning: Patient will likely be discharged home tomorrow Time with Patient: Less than 30
--- NOTE | 2017-04-04 17:12 | P.CONS ---
History of Present Illness - Reason for Consult Consult date: 04/04/17 Requesting physician: Micah Thompson - Chief Complaint Knee arthroplasty left - History of Present Illness This is a 66-year-old English male patient of Dr. Osuna with past medical history of coronary artery disease with previous heart catheterization in 2014 finding severe stenosis of the left circumflex with moderate to severe stenosis in the right coronary artery status post stent of the distal left circumflex, hyperlipidemia, hypertension, chronic pain, osteoarthritis. Patient was previously cleared by his director of diagnostic imaging Dr. Tobin before surgery and underwent a Lexiscan stress test in December at [facility] which was negative. Patient is admitted under the service of Dr. Thompson status post left total knee arthroplasty performed on 04/03/2017.. He was last admitted from our facility 02/21/2017 for a right total knee replacement. Patient did well. The degree at that time, also had no complications post op, and did well on his home recovery program. Patient denies any history of DVT or PE in the past, patient does not have any chest pain and hematochezia no shortness of breath no abdominal pain no hematuria, was 40 seed vivar are not measured however he is voiding spontaneously Patient denies any complaints. He is tolerating his diet. Postoperative pain is controlled He has had no hypotension. Denies any nausea or vomiting nor orthostasis. Patient's anticipated to be discharged with home therapy program tomorrow. Hemoglobin is noted to be lower today, iron supplementation was started Review of Systems Constitutional: Reports as per HPI, Denies anorexia, Denies chills, Denies chronic headaches, Denies chronic pain, Denies daytime sleepiness, Denies fatigue, Denies fever, Denies lethargy, Denies malaise, Denies night sweats, Denies poor appetite, Denies sweats, Denies weakness, Denies weight gain, Denies weight loss Ears, nose, mouth and throat: Reports as per HPI, Denies ant. neck pain, Denies bleeding gums, Denies dental pain, Denies dysphagia, Denies epistaxis, Denies headache, Denies hoarseness, Denies mouth pain, Denies nasal congestion, Denies nasal discharge, Denies neck fullness/pressure, Denies neck lump, Denies nose pain, Denies odynophagia, Denies post-nasal drip, Denies sinus pain, Denies sinus pressure, Denies swelling in mouth, Denies swelling in throat, Denies sore throat, Denies vertigo, Denies voice changes Cardiovascular: Reports as per HPI, Denies chest pain, Denies claudication, Denies decreased exercise tolerance, Denies dyspnea on exertion, Denies edema, Denies high blood pressure, Denies irregular heart beat, Denies leg edema, Denies lightheadedness, Denies orthopnea, Denies palpitations, Denies paroxysmal nocturnal dyspnea, Denies phlebitis, Denies rapid heart beat, Denies shortness of breath, Denies syncope Respiratory: Reports as per HPI, Denies congestion, Denies cough, Denies cough with sputum, Denies dyspnea, Denies excessive sputum, Denies hemoptysis, Denies home oxygen, Denies pain, Denies pain on inspiration, Denies pleurisy, Denies respiratory infections, Denies sleep apnea, Denies snoring, Denies wheezing Gastrointestinal: Reports as per HPI, Denies abdominal pain, Denies belching, Denies bloating, Denies BRBPR, Denies change in bowel habits, Denies coffee ground emesis, Denies constipation, Denies diarrhea, Denies dyspepsia, Denies early satiety, Denies excessive gas, Denies heartburn, Denies hematemesis, Denies hematochezia, Denies indigestion, Denies jaundice, Denies lactose intolerance, Denies loss of appetite, Denies melena, Denies nausea, Denies vomiting Genitourinary: Reports as per HPI, Denies decreased libido, Denies difficulties fathering child, Denies discharge, Denies dysuria, Denies erectile dysfunction, Denies flank pain, Denies genital pain, Denies genital sores, Denies hematuria, Denies impotence, Denies incontinence, Denies kidney stones, Denies nocturia, Denies polyuria, Denies testicular lump, Denies testicular pain, Denies urinary frequency, Denies urinary hesitancy, Denies urinary retention Musculoskeletal: Reports as per HPI, Reports limitation of motion, Denies arm numbness/tingling, Denies atrophy, Denies fractures, Denies frequent falls, Denies gait dysfunction, Denies hot joints, Denies leg numbness/tingling, Denies loss of height, Denies low back pain, Denies morning stiffness, Denies muscle cramps, Denies muscle weakness, Denies myalgias, Denies neck pain, Denies neck stiffness, Denies prior amputations, Denies redness of joints, Denies shooting arm pain, Denies shooting leg pain Integumentary: Reports as per HPI, Denies acne, Denies boils, Denies brittle nails, Denies change in hair/nails, Denies color changes, Denies darkening of skin, Denies depigmentation, Denies dryness, Denies foot/leg ulcers, Denies growths, Denies hirsutism, Denies lesions, Denies onychomycosis, Denies pruritus , Denies rash, Denies sores, Denies striae, Denies unusual bruising, Denies wounds Neurological: Reports as per HPI, Denies aphasia, Denies ataxia, Denies balance difficulties, Denies burning pain, Denies change in mentation, Denies change in smell/taste, Denies change in speech, Denies confusion, Denies convulsions, Denies double vision, Denies gait dysfunction, Denies head injury, Denies headaches, Denies hearing difficulties, Denies lack of coordination, Denies loss of vision, Denies memory loss, Denies migraines, Denies motor disturbance, Denies numbness, Denies paralysis, Denies paresthesias, Denies seizures, Denies sensory deficit, Denies spasticity, Denies syncope, Denies tic, Denies tingling , Denies transient paralysis, Denies tremors, Denies vertigo, Denies weakness, Denies visual changes Psychiatric: Reports as per HPI Endocrine: Reports as per HPI Hematologic/Lymphatic: Reports as per HPI, Denies easy bleeding, Denies easy bruising, Denies lymphadenopathy, Denies lymphedema, Denies thrombophilia Allergic/Immunologic: Reports as per HPI, Denies allergic rhinitis, Denies anaphylaxis, Denies angioedema, Denies gluten intolerance, Denies persistent infections, Denies seasonal allergies, Denies urticaria, Denies wheezing Past Medical History Past Medical History: Coronary Artery Disease (CAD), Hyperlipidemia, Hypertension, Osteoarthritis (OA) Additional Past Medical History / Comment(s): chronic pain History of Any Multi-Drug Resistant Organisms: None Reported Past Surgical History: Orthopedic Surgery Additional Past Surgical History / Comment(s): Arthroscopy 2 times on the left knee, arthroscopy on the right knee, right total knee arthroplasty, bilateral rotator cuff repair, heart cath with stenting of the left circumflex Past Anesthesia/Blood Transfusion Reactions: No Reported Reaction Date of Last Stent Placement:: 2014 Smoking Status: Never smoker - Past Family History Mother Family Medical History: No Reported History Additional Family Medical History / Comment(s): Mother at age 91 with history of hypertension. Father Additional Family Medical History / Comment(s): Father at age 86 with history of hypertension. Brother(s) Additional Family Medical History / Comment(s): Patient has one brother with history of hypertension and osteoarthritis. Patient has one sister with history of CVA. Patient is 3 children, one daughter with electrical issue with her heart, 2 sons and one has hypertension. Medications and Allergies Home Medications Medication Instructions Recorded Confirmed Type Aspirin EC [Ecotrin Low Dose] 81 mg PO DAILY 11/08/16 04/03/17 History Atorvastatin [Lipitor] 40 mg PO DAILY 11/08/16 04/03/17 History Clopidogrel [Plavix] 75 mg PO DAILY 11/08/16 04/03/17 History Fish Oil/Dha/Epa [Fish Oil 1,200 1 cap PO DAILY 11/08/16 04/03/17 History mg Fish Oil] Losartan [Cozaar] 50 mg PO DAILY 11/08/16 04/03/17 History Metoprolol Succinate (ER) [Toprol 50 mg PO DAILY 11/08/16 04/03/17 History Xl] Pseudoephedrine [Sudafed] 30 mg PO DAILY PRN 11/08/16 04/03/17 History Naproxen Sodium [Aleve] 440 mg PO DAILY PRN 02/13/17 04/03/17 History Famotidine [Pepcid] 20 mg PO DAILY #30 tablet 02/22/17 04/03/17 Rx traMADol HCl [Ultram] 50 mg PO Q6H PRN #40 tab 02/22/17 04/03/17 Rx Hydrocodone/Acetaminophen [[place] 1 - 2 tab PO Q6H PRN 04/03/17 04/03/17 History 10-325] Allergies Allergy/AdvReac Type Severity Reaction Status Date / Time No Known Allergies Allergy Verified 04/03/17 16:29 Physical Exam Vitals: Vital Signs Temp Pulse Resp BP Pulse Ox 04/04/17 08:00 97.2 F L 68 18 115/72 97 04/04/17 04:49 98.4 F 88 17 115/71 95 04/03/17 20:00 90 16 04/03/17 19:15 99 16 140/77 98 04/03/17 19:00 98.2 F 94 16 131/78 96 04/03/17 18:45 86 16 129/74 98 04/03/17 18:30 16 132/75 96 04/03/17 18:15 70 16 138/84 97 04/03/17 18:00 76 16 150/86 97 04/03/17 17:45 66 16 146/80 97 04/03/17 17:30 98 F 72 16 143/83 97 04/03/17 17:15 98 F 64 16 143/77 97 04/03/17 17:00 59 L 16 121/67 100 04/03/17 16:45 65 14 116/73 04/03/17 16:30 64 18 111/65 98 04/03/17 16:17 97.8 F 83 16 117/67 95 Intake and Output 04/03/17 04/04/17 04/04/17 22:59 06:59 14:59 Intake Total 1750 Output Total 1100 425 700 Balance 650 -425 -700 Intake: IV 500 Oral 1250 Output: Urine 1100 425 700 Uretheral (Traylor) 700 Other: Voiding Method Indwelling Catheter Indwelling Catheter Weight 81.647 kg 81.647 kg - Constitutional General appearance: average body habitus, no cooperative, no disheveled, no mild distress, no morbidly obese, no no acute distress, no obese, no severe distress, no thin - EENT Eyes: anicteric sclerae, EOMI, PERRLA, dentition normal, normal appearance ENT: NA/AT, normal oropharynx - Neck Neck: normal ROM - Respiratory Respiratory: bilateral: CTA, negative: diminished, dullness, rales, rhonchi, wheezing - Cardiovascular Rhythm: regular Heart sounds: normal: S1, S2 Abnormal Heart Sounds: no systolic murmur, no diastolic murmur, no rub, no S3 Gallop, no S4 Gallop, no click, no other - Gastrointestinal General gastrointestinal: soft - Integumentary Integumentary: normal, normal turgor - Neurologic Neurologic: CNII-XII intact, focal deficits - Musculoskeletal Musculoskeletal: strength equal bilaterally (Antalgic gait left knee) - Psychiatric Psychiatric: A&O x's 3, intact judgment & insight Results CBC & Chem 7: 04/04/17 06:17 Labs: Abnormal Lab Results - Last 24 Hours (Table) 04/04/17 Range/Units 06:17 RBC 2.83 L (4.30-5.90) m/uL Hgb 8.9 L D (13.0-17.5) gm/dL Hct 26.4 L (39.0-53.0) % Lymphocytes # 0.6 L (1.0-4.8) k/uL Laboratory Results WBC 7.7 k/uL (3.8-10.6) 04/04/17 06:17 RBC 2.83 m/uL (4.30-5.90) L 04/04/17 06:17 Hgb 8.9 gm/dL (13.0-17.5) L D 04/04/17 06:17 Hct 26.4 % (39.0-53.0) L 04/04/17 06:17 MCV 93.2 fL (80.0-100.0) 04/04/17 06:17 MCH 31.5 pg (25.0-35.0) 04/04/17 06:17 MCHC 33.8 g/dL (31.0-37.0) 04/04/17 06:17 RDW 13.1 % (11.5-15.5) 04/04/17 06:17 Plt Count 224 k/uL (150-450) 04/04/17 06:17 Neutrophils % 83 % 04/04/17 06:17 Lymphocytes % 8 % 04/04/17 06:17 Monocytes % 6 % 04/04/17 06:17 Eosinophils % 1 % 04/04/17 06:17 Basophils % 0 % 04/04/17 06:17 Neutrophils # 6.4 k/uL (1.3-7.7) 04/04/17 06:17 Lymphocytes # 0.6 k/uL (1.0-4.8) L 04/04/17 06:17 Monocytes # 0.4 k/uL (0-1.0) 04/04/17 06:17 Eosinophils # 0.0 k/uL (0-0.7) 04/04/17 06:17 Basophils # 0.0 k/uL (0-0.2) 04/04/17 06:17 Assessment and Plan Plan: 1. Osteoarthritis status post left total knee arthroplasty in the care of Dr. Thompson 04/03/2017. Continue pain management, PT OT, incentive spirometry to reduce incidence of atelectasis and hospital-acquired pneumonia., Opiates for pain control, anticipate home therapy program, bowel prophylaxis for constipation 2. Hypertension. Restart Cozaar 50 mg daily, Toprol-XL 50 mg daily, Imdur 30 mg daily. 3. Coronary artery disease status post stent of the left circumflex. Continue Imdur 30 mg daily, Plavix 75 mg daily, Lipitor 40 mg daily, aspirin 81 mg daily. 4. Hyperlipidemia. Continue statin. Lipitor 40 5. DVT prophylaxis. 6. Acute blood loss anemia, hemoglobin currently at 8.9, start iron supplementation, he would transfuse if hemoglobin drops under 7.0, 7. Gastric intestinal prophylaxis. Pepcid. Thank you Dr. Thompson in allowing us to participate in the care of your patient. We'll follow him with you during this perioperative phase, adjustments to his treatment would be made on his clinical progress. Please do not hesitate to contact us should there be any concerns about his medical state Discharge plan: Home tomorrow
[2017-04-04] MEDS ORDERED: FAMOTIDINE 20 MG TAB PO SCH (17:15)
[2017-04-04] MEDS: ATORVASTATIN 40 MG TAB PO SCH (17:43)
[2017-04-04] MEDS: FERROUS SULFATE 325 MG TAB PO SCH (19:20)
[2017-04-04] MEDS: LOSARTAN 50 MG TAB PO SCH (19:20)
[2017-04-04] MEDS: METOPROLOL SUCCINATE (ER) 50 MG TAB.ER.24H PO SCH (19:20)
[2017-04-04] MEDS: DOCUSATE 100 MG CAP PO SCH (19:20)
[2017-04-04] MEDS: SENNOSIDES-DOCUSATE SODIUM 1 EACH TAB PO SCH (20:58)
[2017-04-05] MEDS: HYDROcodone/APAP 10-325MG 1 EACH TAB PO PRN ×2 (00:35→07:54)
[2017-04-05] MEDS: HYDROmorphone 1 MG/ML 1 ML SYRINGE IVP PRN ×2 (01:37→05:01)
[2017-04-05] MEDS: LOSARTAN 50 MG TAB PO SCH (07:53)
[2017-04-05] MEDS: CLOPIDOGREL 75 MG TAB PO SCH (07:53)
[2017-04-05] MEDS: FAMOTIDINE 20 MG TAB PO SCH (07:53)
[2017-04-05] MEDS: METOPROLOL SUCCINATE (ER) 50 MG TAB.ER.24H PO SCH (07:53)
[2017-04-05] MEDS: ATORVASTATIN 40 MG TAB PO SCH (07:53)
[2017-04-05] MEDS: DOCUSATE 100 MG CAP PO SCH (07:53)
[2017-04-05] MEDS: FERROUS SULFATE 325 MG TAB PO SCH (07:54)
[2017-04-05 08:29] VITALS: BP 154/89; PULSE 79; RESP 17; TEMP 98.9
--- NOTE | 2017-04-05 09:38 | P.PN ---
Subjective Principal diagnosis: Status post left total knee arthroplasty Patient seen today resting in his hospital bed, he appears comfortable. His pain is well-controlled. He's ambulated well with therapy. He denies any headaches, lightheadedness, chest pain, shortness of breath, fever chills. Objective - Vital Signs Vital signs: Vital Signs Temp 98.9 F 04/05/17 07:00 Pulse 79 04/05/17 07:00 Resp 17 04/05/17 07:00 BP 154/89 04/05/17 07:00 Pulse Ox 97 04/05/17 08:02 Intake & Output 04/04/17 04/05/17 04/05/17 18:59 06:59 18:59 Intake Total 1200 2720 Output Total 1125 Balance 75 2720 Weight 81.647 kg 81.647 kg Intake: Intake, IV Titration 600 320 Amount Lactated Ringers 1,000 ml 500 320 As IV .[facility] Rx#: [id number] ceFAZolin 2 gm In Sodium 100 Chloride 0.9% 100 ml @ 100 mls/hr IVPB Q8HR [facility] Rx#:[id number] Oral 600 2400 Output: Urine 1125 Uretheral (Traylor) 700 Other: Voiding Method Indwelling Catheter Indwelling Catheter Toilet Urinal # Voids 1 - Exam Left lower extremity: Incisions clean, dry and intact. Calf soft, no tenderness with palpation. Plantar flexion, dorsiflexion, EHL, FHL are intact. Sensory exam to light touch throughout the extremities intact, dorsal pedis pulses 2+. - Labs CBC & Chem 7: 04/04/17 06:17 Assessment and Plan Plan: Assessment: 1. Postop day #2 status post left total knee arthroplasty Plan: 1. Pain control, continue use of oral medication 2. Continue therapy and use of CPM 3. Ice and elevate/daily dressing changes 4. Encourage incentive spirometer 5. GI and DVT prophylaxis, has resumed home Plavix dose 6. Medical recommendations excellent 7. Discharge planning: Patient will be discharged home today Time with Patient: Less than 30
--- NOTE | 2017-04-05 09:42 | P.DS ---
Providers Date of admission: 04/03/17 10:05 Expected date of discharge: 04/05/17 Attending physician: Micah Thompson Consults: 04/04/17 14:20 Consult Physician Routine Consulting Provider: Elen Whitman Consult Reason/Comments: medical management Do you want consulting provider notified?: Already Contacted Primary care physician: [facility] Course: Date of admission: 04/03/2017 Date of discharge: 04/05/2017 Admission diagnosis: Status post left total knee arthroplasty Discharge diagnosis: Same Attending physician: Dr. Thompson Surgical procedures: Left total knee arthroplasty Brief history: Patient is a 67-year-old male with a history of progressive primary left knee osteoarthritis. At this point patient has failed conservative treatment measures and has opted to proceed with a elective left total knee arthroplasty. Hospital course: Details of patient's surgery can be found in operative report. Patient tolerated the procedure well and was subsequently transported to orthopedic floor. Patient's orthopeidc and medical care was provided daily. Patient had daily laboratory tests performed for evaluation of overall blood counts. Patient had daily physical therapy to include strengthening range of motion as well as education with walker ambulation. Patient had daily CPM usage as part of their physical therapy program. Patient was treated with Plavix for their postoperative DVT prophylaxis during their inpatient stay. Patient was noted to have a relatively uneventful postoperative course. Patient reported satisfactory pain control with oral pain medications by postoperative day 0. Patient showed satisfactory progress with physical therapy. Patient moved steadily through the program and had no difficulty meeting the goals by postoperative day 2. Given patient's otherwise satisfactory course and having met physical therapy goals, plan is to discharge patient home on postoperative day 2. Discharge condition/disposition: Patient will be discharged home in stable condition. Discharge medications: Instructions are given on resumption of patient's normal daily medications per primary care recommendation, in addition patient will be prescribed [place] 10 mg/325 mg, tramadol 50 mg. Discharge instructions: 1. Wound care and infection precautions, keep incision dry and covered while showering], no lotions, creams, moisturizers. No soaking, tubs, pools, hottubs. Do not scrub over the incision. 2. Weight-bear [as tolerated] with walker / cane until follow-up. 3. Ice and elevate when necessary. Do not exceed 20 minutes per hour with ice pack. 4. Utilize compression sleeve until seen at first follow up appointment. 5. Visiting nursing care. 6. Home physical therapy [including home CPM]. 7. Pain meds and anticoagulants per prescription. 8. Pain medication has potential to cause constipation. Increase oral fluid and fiber intake. Contact primary care provider if you have not had a bowel movement within 48 hours after discharge 9. No anti-inflammatory medication until discussed at first post operative visit, this including Motrin, Aleve, Mobic, Diclofenac. 10. Follow up in office at 2 weeks postop with Joshua Henning PA-C 11. Follow up with your primary care doctor 7-10 days after discharge. 12. Contact [facility] with any questions, . Procedures: Left total knee arthroplasty Patient Condition at Discharge: Good Plan - Discharge Summary New Discharge Prescriptions: New Hydrocodone/Acetaminophen [[place] 10-325] 1 - 2 each PO Q6H PRN #60 tab PRN Reason: Pain traMADol HCl [Ultram] 50 mg PO Q6H PRN #40 tab PRN Reason: Pain No Action Pseudoephedrine [Sudafed] 30 mg PO DAILY PRN PRN Reason: Congestion Fish Oil/Dha/Epa [Fish Oil 1,200 mg Fish Oil] 1 cap PO DAILY Clopidogrel [Plavix] 75 mg PO DAILY Metoprolol Succinate (ER) [Toprol Xl] 50 mg PO DAILY Losartan [Cozaar] 50 mg PO DAILY Atorvastatin [Lipitor] 40 mg PO DAILY Aspirin EC [Ecotrin Low Dose] 81 mg PO DAILY Naproxen Sodium [Aleve] 440 mg PO DAILY PRN PRN Reason: Pain Famotidine [Pepcid] 20 mg PO DAILY #30 tablet Discharge Medication List Aspirin EC [Ecotrin Low Dose] 81 mg PO DAILY 11/08/16 [History] Atorvastatin [Lipitor] 40 mg PO DAILY 11/08/16 [History] Clopidogrel [Plavix] 75 mg PO DAILY 11/08/16 [History] Fish Oil/Dha/Epa [Fish Oil 1,200 mg Fish Oil] 1 cap PO DAILY 11/08/16 [History] Losartan [Cozaar] 50 mg PO DAILY 11/08/16 [History] Metoprolol Succinate (ER) [Toprol Xl] 50 mg PO DAILY 11/08/16 [History] Pseudoephedrine [Sudafed] 30 mg PO DAILY PRN 11/08/16 [History] Naproxen Sodium [Aleve] 440 mg PO DAILY PRN 02/13/17 [History] Famotidine [Pepcid] 20 mg PO DAILY #30 tablet 02/22/17 [Rx] Hydrocodone/Acetaminophen [[place] 10-325] 1 - 2 each PO Q6H PRN #60 tab 04/05/17 [Rx] traMADol HCl [Ultram] 50 mg PO Q6H PRN #40 tab 04/05/17 [Rx] Follow up Appointment(s)/Referral(s): Pk Hennign PAC [PHYSICIAN CABIN AGENT] - 2 Weeks [facility], [REFERRING] - Activity/Diet/Wound Care/Special Instructions: Orthopedic Discharge Instructions: 1. Wound care and infection precautions, keep incision dry and covered while showering, no lotions, creams, moisturizers. No soaking, pools, hot tubs. Do not scrub over incision. 2. Weight-bear as tolerated with walker / cane until follow-up. 3. Ice and elevate when necessary. Do not exceed 20 minutes per hour with ice pack. 4. Utilize compression sleeve until seen at first follow up appointment. 5. Visiting nursing care. 6. Home physical therapy including home CPM. 7. Pain meds and anticoagulants per prescription. 8. Pain medication has potential to cause constipation. Increase oral fluid and fiber intake. Contact primary care provider if you have not had a bowel movement within 48 hours after discharge. 9. No anti-inflammatory medication until discussed at first post operative visit, this including Motrin, Aleve, Mobic, Diclofenac. 10. Follow up in office at 2 weeks postop with Joshua Henning PA-C 11. Follow up with your primary care doctor 7-10 days after discharge. 12. Contact [facility] with any questions, . Discharge Disposition: HOME WITH HOME HEALTH SERVICES
== END 2017-04-05 11:30 | disposition home health service (06) | DRG 470 ==
LOC: 2ORMAIN 10:05 → 3SUR 16:15
PROVIDERS: ADMIT Orthopaedic Surgery; ATTEND Orthopaedic Surgery
PROC: 0SRD0J9 Replacement of Left Knee Joint with Synthetic Substitute, Cemented, Open Approach (ICD-10-PCS; principal; 2017-04-03 12:40)
DX: M17.12 Unilateral primary osteoarthritis, left knee (principal); I10 Essential (primary) hypertension; E78.5 Hyperlipidemia, unspecified; I25.10 Atherosclerotic heart disease of native coronary artery without angina pectoris; Z79.02 Long term (current) use of antithrombotics/antiplatelets; Z79.899 Other long term (current) drug therapy; Z82.49 Family history of ischemic heart disease and other diseases of the circulatory system; Z95.5 Presence of coronary angioplasty implant and graft
CPT/HCPCS: 85025; 88300; 94760

== ENCOUNTER 2017-05-16 11:10 | Emergency (ER) | payer MEDICARE ==
[2017-05-16 11:31] VITALS: BP 144/76; RESP 16; TEMP 97.7
[2017-05-16 11:32] VITALS: PULSE 100
--- NOTE | 2017-05-16 11:50 | ED ---
General Adult HPI - General Chief complaint: Skin/Abscess/Foreign Body Stated complaint: lump on buttox Time Seen by Provider: 05/16/17 11:30 Source: patient, RN notes reviewed Mode of arrival: ambulatory Limitations: no limitations - History of Present Illness Initial comments: Patient is a pleasant 67-year-old male presenting to the emergency department for pain and swelling of his left gluteal region. Onset was 4 days ago. Patient states symptoms have significantly worsened over the past 2 days. No fevers. Patient is unclear if he may have been bitten by an insect or not. Discomfort is moderate but worse with touch. No history of similar symptoms previously. - Related Data Home Medications Medication Instructions Recorded Confirmed Aspirin EC [Ecotrin Low Dose] 81 mg PO DAILY 11/08/16 04/03/17 Atorvastatin [Lipitor] 40 mg PO DAILY 11/08/16 04/03/17 Clopidogrel [Plavix] 75 mg PO DAILY 11/08/16 04/03/17 Losartan [Cozaar] 50 mg PO DAILY 11/08/16 04/03/17 Metoprolol Succinate (ER) [Toprol 50 mg PO DAILY 11/08/16 04/03/17 XL] Pseudoephedrine [Sudafed] 30 mg PO DAILY PRN 11/08/16 04/03/17 Previous Rx's Medication Instructions Recorded Famotidine [Pepcid] 20 mg PO DAILY #30 tablet 02/22/17 Ferrous Sulfate [Iron (65 MG 325 mg PO DAILY tab 04/05/17 Elemental)] Hydrocodone/Acetaminophen [[place] 1 - 2 each PO Q6H PRN #60 tab 04/05/17 10-325] traMADol HCl [Ultram] 50 mg PO Q6H PRN #40 tab 04/05/17 Sulfamethox-Tmp 800-160Mg [Bactrim 2 each PO Q12HR #40 tab 05/16/17 DS 800-160 mg] Allergies Allergy/AdvReac Type Severity Reaction Status Date / Time No Known Allergies Allergy Verified 05/16/17 11:27 Review of Systems ROS Statement: Those systems with pertinent positive or pertinent negative responses have been documented in the HPI. ROS Other: All systems not noted in ROS Statement are negative. Constitutional: Denies: fever Eyes: Denies: eye pain ENT: Denies: ear pain Respiratory: Denies: cough Cardiovascular: Denies: chest pain Endocrine: Denies: fatigue Gastrointestinal: Denies: abdominal pain Genitourinary: Denies: dysuria Musculoskeletal: Denies: back pain Skin: Reports: lesions (Left gluteal lesion) Neurological: Denies: weakness Past Medical History Past Medical History: Coronary Artery Disease (CAD), Hyperlipidemia, Hypertension, Osteoarthritis (OA) Additional Past Medical History / Comment(s): chronic pain History of Any Multi-Drug Resistant Organisms: None Reported Past Surgical History: Orthopedic Surgery Additional Past Surgical History / Comment(s): Arthroscopy 2 times on the left knee, arthroscopy on the right knee, right total knee arthroplasty, bilateral rotator cuff repair, heart cath with stenting of the left circumflex Past Anesthesia/Blood Transfusion Reactions: No Reported Reaction Date of Last Stent Placement:: 2014 Past Psychological History: No Psychological Hx Reported Smoking Status: Never smoker Past Alcohol Use History: None Reported Past Drug Use History: None Reported - Past Family History Mother Family Medical History: No Reported History Additional Family Medical History / Comment(s): Mother at age 91 with history of hypertension. Father Additional Family Medical History / Comment(s): Father at age 86 with history of hypertension. Brother(s) Additional Family Medical History / Comment(s): Patient has one brother with history of hypertension and osteoarthritis. Patient has one sister with history of CVA. Patient is 3 children, one daughter with electrical issue with her heart, 2 sons and one has hypertension. General Exam Limitations: no limitations General appearance: alert, in no apparent distress Head exam: Present: normocephalic Eye exam: Present: normal appearance Rectal exam: Present: other (Left gluteal region midline/upper with 2 cm area of increased induration, likely early abscess. There is surrounding indurated area. There is tenderness. Minimal erythema. No warmth.) Extremities exam: Present: normal inspection Neurological exam: Present: alert Psychiatric exam: Present: normal affect, normal mood Skin exam: Present: other (Left gluteal region described above.) Course Vital Signs 05/16/17 11:27 Temperature 97.7 F Pulse Rate 100 Respiratory 16 Rate Blood Pressure 144/76 O2 Sat by Pulse 98 Oximetry Procedures - Incision & Drainage Consent Obtained: verbal consent Time Out Performed?: Yes Site: buttock Size (cm): 2 Anesthetic Used: lidocaine 1% I&D Cleaning Method: Betadine Scalpel Used: #11 Irrigation Performed?: No I&D Drainage Obtained: Pus Culture Obtained?: Yes Patient Tolerated Procedure: well, no complications Disposition Clinical Impression: Gluteal abscess Disposition: HOME SELF-CARE Condition: Stable Instructions: Abscess (ED), Abscess Incision and Drainage (ED) Additional Instructions: Please follow-up with your doctor in the next day or 2 for recheck. Have your doctor checked culture results. Return for fevers, increased pain, increased swelling, redness, worsening symptoms or other concerns. If symptoms do worsen you may need further incision and drainage done or possible IV antibiotics. Start your antibiotics today. Prescriptions: Sulfamethox-Tmp 800-160Mg [Bactrim DS 800-160 mg] 2 each PO Q12HR #40 tab Referrals: Deedee Iyer MD [Primary Care Provider] - 1-2 days Time of Disposition: 11:49
== END 2017-05-16 12:00 | disposition home or self-care (01) ==
LOC: EC 11:10
DX: L02.31 Cutaneous abscess of buttock (principal); I25.10 Atherosclerotic heart disease of native coronary artery without angina pectoris; E78.5 Hyperlipidemia, unspecified; I10 Essential (primary) hypertension; M19.90 Unspecified osteoarthritis, unspecified site; Z79.82 Long term (current) use of aspirin; Z79.02 Long term (current) use of antithrombotics/antiplatelets; Z79.899 Other long term (current) drug therapy
CPT/HCPCS: 10060; 87070; 87077; 87186; 87205; 99283

== ENCOUNTER → 2017-08-23 | Outpatient (CLI) | payer MEDICARE ==
[2017-08-23 18:53] LABS: Cholesterol 120 mg/dL (<200); Creatine Kinase 177 U/L (55-170); HDL Cholesterol 53 mg/dL (40-60); LDL Cholesterol,Calculated 59 mg/dL (0-99); Triglycerides 42 mg/dL (<150)
== END | disposition home or self-care (01) ==
LOC: MMGSC 10:41
PROVIDERS: ATTEND Internal Medicine Cardiovascular Disease
DX: E78.2 Mixed hyperlipidemia (principal)
CPT/HCPCS: 80061; 82550

== ENCOUNTER → 2017-08-23 | Outpatient (CLI) | payer MEDICARE ==
[2017-08-23 18:54] LABS: ALT 35 U/L (21-72); AST 32 U/L (17-59); Albumin 4.3 g/dL (3.5-5.0); Alkaline Phosphatase 103 U/L (38-126); Anion Gap 10 mmol/L; Blood Urea Nitrogen 22 mg/dL (9-20); Calcium 9.6 mg/dL (8.4-10.2); Carbon Dioxide 28 mmol/L (22-30); Chloride 103 mmol/L (98-107); Glucose 91 mg/dL (74-99); Potassium 5.3 mmol/L (3.5-5.1); Sodium 141 mmol/L (137-145); Total Bilirubin 0.5 mg/dL (0.2-1.3); Total Protein 6.7 g/dL (6.3-8.2)
== END | disposition home or self-care (01) ==
LOC: MMGSC 10:34
PROVIDERS: ATTEND Family Medicine
DX: E78.2 Mixed hyperlipidemia (principal); I10 Essential (primary) hypertension; Z12.5 Encounter for screening for malignant neoplasm of prostate
CPT/HCPCS: 80053; 36415; G0103; 80061; 82550

== ENCOUNTER → 2017-08-27 | Outpatient (CLI) | payer MEDICARE ==
[2017-08-27 19:09] LABS: Anion Gap 11 mmol/L; Blood Urea Nitrogen 30 mg/dL (9-20); Calcium 9.2 mg/dL (8.4-10.2); Carbon Dioxide 24 mmol/L (22-30); Chloride 105 mmol/L (98-107); Glucose 96 mg/dL (74-99); Potassium 4.4 mmol/L (3.5-5.1); Sodium 140 mmol/L (137-145)
== END | disposition home or self-care (01) ==
LOC: MMGSC 09:12
PROVIDERS: ATTEND Family Medicine
DX: E87.5 Hyperkalemia (principal)
CPT/HCPCS: 36415; 80048

== ENCOUNTER 2017-09-28 15:51 | Emergency (ER) | payer MEDICARE ==
[2017-09-28 16:01] VITALS: BP 169/93; PULSE 87; RESP 16; TEMP 97.4
--- NOTE | 2017-09-28 16:17 | ED ---
General Adult HPI - General Chief complaint: Dental/Oral Stated complaint: Facial swelling Time Seen by Provider: 09/28/17 16:05 Source: patient, RN notes reviewed Mode of arrival: ambulatory Limitations: no limitations - History of Present Illness Initial comments: Patient 67-year-old male who presents emergency room today with chief complaint of possible infection to the right side of his face. He does but that he noticed some swelling and some tenderness 3 days ago. He states that it has gotten larger in size. He states more tender. Patient denies any drainage or discharge. Denies any dental pain. He denies any other complaints or symptoms. Patient denies any recent fever, chills, shortness of breath, chest pain, back pain, abdominal pain, nausea or vomiting, numbness or tingling, dysuria or hematuria, constipation or diarrhea, headaches or visual changes, or any other complaints. - Related Data Home Medications Medication Instructions Recorded Confirmed Aspirin EC [Ecotrin Low Dose] 81 mg PO DAILY 11/08/16 09/28/17 Atorvastatin [Lipitor] 40 mg PO DAILY 11/08/16 09/28/17 Losartan [Cozaar] 50 mg PO DAILY 11/08/16 09/28/17 HYDROcodone/APAP 7.5-325MG [[place] 1 tab PO Q6HR PRN 09/28/17 09/28/17 7.5-325] Naproxen Sodium [Aleve] 220 mg PO BID PRN 09/28/17 09/28/17 Previous Rx's Medication Instructions Recorded Clindamycin HCl [Cleocin] 300 mg PO Q6HR 10 Days cap 09/28/17 Allergies Allergy/AdvReac Type Severity Reaction Status Date / Time No Known Allergies Allergy Verified 09/28/17 16:11 Review of Systems ROS Statement: Those systems with pertinent positive or pertinent negative responses have been documented in the HPI. ROS Other: All systems not noted in ROS Statement are negative. Past Medical History Past Medical History: Coronary Artery Disease (CAD), Hyperlipidemia, Hypertension, Osteoarthritis (OA) Additional Past Medical History / Comment(s): chronic pain History of Any Multi-Drug Resistant Organisms: None Reported Past Surgical History: Heart Catheterization With Stent, Joint Replacement, Orthopedic Surgery Additional Past Surgical History / Comment(s): Arthroscopy 2 times on the left knee, arthroscopy on the right knee, right total knee arthroplasty, bilateral rotator cuff repair, heart cath with stenting of the left circumflex Past Anesthesia/Blood Transfusion Reactions: No Reported Reaction Date of Last Stent Placement:: 2014 Past Psychological History: No Psychological Hx Reported Smoking Status: Never smoker Past Alcohol Use History: None Reported Past Drug Use History: None Reported - Past Family History Mother Family Medical History: No Reported History Additional Family Medical History / Comment(s): Mother at age 91 with history of hypertension. Father Additional Family Medical History / Comment(s): Father at age 86 with history of hypertension. Brother(s) Additional Family Medical History / Comment(s): Patient has one brother with history of hypertension and osteoarthritis. Patient has one sister with history of CVA. Patient is 3 children, one daughter with electrical issue with her heart, 2 sons and one has hypertension. General Exam - General Exam Comments Initial Comments: General: The patient is awake and alert, in no distress, and does not appear acutely ill. Eye: Pupils are equal, round and reactive to light, extra-ocular movements are intact. No nystagmus. There is normal conjunctiva bilaterally. No signs of icterus. Ears, nose, mouth and throat: There are moist mucous membranes and no oral lesions. Neck: The neck is supple, there is no tenderness or JVD. Cardiovascular: There is a regular rate and rhythm. No murmur, rub or gallop is appreciated. Respiratory: Lungs are clear to auscultation, respirations are non-labored, breath sounds are equal. No wheezes, stridor, rales, or rhonchi. Musculoskeletal: Normal ROM, no tenderness. Strength 5/5. Sensation intact. Pulses equal bilaterally 2+. Neurological: A&O x 3. CN II-XII intact, There are no obvious motor or sensory deficits. Coordination appears grossly intact. Speech is normal. Skin: Patient does have some redness erythema just below right nostril. There is an area that is firm on palpation measures approximately a centimeter across. No fluctuance. Psychiatric: Cooperative, appropriate mood & affect, normal judgment. Limitations: no limitations Course Vital Signs 09/28/17 15:58 Temperature 97.4 F L Pulse Rate 87 Respiratory 16 Rate Blood Pressure 169/93 O2 Sat by Pulse 99 Oximetry Medical Decision Making - Medical Decision Making Patient will be started on clindamycin to cover for abscess and also any dental infection. Patient advised warm compresses and to follow-up over the next 2 days or return here to the emergency room symptoms increase or worsen. Disposition Clinical Impression: Abscess Disposition: HOME SELF-CARE Condition: Good Instructions: Abscess (ED) Additional Instructions: Please use warm compresses as discussed. Please use antibiotic as prescribed. Please follow-up the family doctor over the next 2 days or return here to the emergency room if symptoms increase or worsen or for new concerns. Prescriptions: Clindamycin HCl [Cleocin] 300 mg PO Q6HR 10 Days cap Referrals: Deedee Iyer MD [Primary Care Provider] - 1-2 days Time of Disposition: 16:16
== END 2017-09-28 16:20 | disposition home or self-care (01) ==
LOC: EC 15:51
DX: K04.7 Periapical abscess without sinus (principal); E78.5 Hyperlipidemia, unspecified; I10 Essential (primary) hypertension; I25.10 Atherosclerotic heart disease of native coronary artery without angina pectoris; M19.90 Unspecified osteoarthritis, unspecified site; Z79.82 Long term (current) use of aspirin; Z79.899 Other long term (current) drug therapy
CPT/HCPCS: 99283

== ENCOUNTER 2018-02-22 08:10 | Day surgery (SDC) | payer MEDICARE ==
[2018-02-20 11:05] VITALS: BMI 28.8
[~2018-02-22 08:10] MED LIST changes: -ACETAMINOPHEN TAB 500 MG TAB PO ONE; -DEXAMETHASONE SOD PHOSPHATE 10 MG/ML 1 ML VIAL IV ONE; -HYDROmorphone 1 MG/ML 1 ML SYRINGE IVP PRN; +LACTATED RINGERS 1,000 ML IV SCH; -MELOXICAM 7.5 MG TAB PO ONE; +MIDAZOLAM 2 MG/2 ML VIAL IV PRN; -ONDANSETRON 4 MG/2 ML VIAL IVP ONE; -SCOPOLAMINE 1.5MG/72HR PATCH TRANSDERM ONE; -TRANEXAMIC ACID 1,000 MG in SODIUM CHLORIDE 0.9% 100 ML IVPB ONE; -ceFAZolin 2 GM in SODIUM CHLORIDE 0.9% 100 ML IVPB ONE
[2018-02-22 08:32] VITALS: TEMP 97.6
[2018-02-22] MEDS ORDERED: PROPOFOL 10 MG/ML 20 ML VIAL IV ONE (09:22)
[2018-02-22] MEDS ORDERED: LIDOCAINE 1% INJ 10MG/ML (20 ML MDV) ONE (09:22)
--- NOTE | 2018-02-22 09:29 | P.GSHP ---
History of Present Illness H&P Date: 02/22/18 Chief Complaint: Screening colonoscopy This is a 67-year-old male referred from Dr.Laura Lin. Patient rents today for screening colonoscopy. He denies a significant GI complaints. Past Medical History Past Medical History: Coronary Artery Disease (CAD), Hyperlipidemia, Hypertension, Osteoarthritis (OA) Additional Past Medical History / Comment(s): chronic pain History of Any Multi-Drug Resistant Organisms: None Reported Past Surgical History: Heart Catheterization With Stent, Joint Replacement, Orthopedic Surgery Additional Past Surgical History / Comment(s): Arthroscopy 2 times on the left knee, arthroscopy on the right knee, right total knee arthroplasty, bilateral rotator cuff repair, heart cath with stenting of the left circumflex , COLONOSCOPY Past Anesthesia/Blood Transfusion Reactions: No Reported Reaction Date of Last Stent Placement:: 2014 Smoking Status: Never smoker - Past Family History Mother Family Medical History: No Reported History Additional Family Medical History / Comment(s): Mother at age 91 with history of hypertension. Father Additional Family Medical History / Comment(s): Father at age 86 with history of hypertension. Brother(s) Additional Family Medical History / Comment(s): Patient has one brother with history of hypertension and osteoarthritis. Patient has one sister with history of CVA. Patient is 3 children, one daughter with electrical issue with her heart, 2 sons and one has hypertension. Medications and Allergies Home Medications Medication Instructions Recorded Confirmed Type Aspirin EC [Ecotrin Low Dose] 81 mg PO DAILY 11/08/16 02/22/18 History Atorvastatin [Lipitor] 40 mg PO DAILY 11/08/16 02/22/18 History Losartan [Cozaar] 50 mg PO DAILY 11/08/16 02/22/18 History HYDROcodone/APAP 7.5-325MG [[place] 1 tab PO Q6HR PRN 09/28/17 02/22/18 History 7.5-325] Naproxen Sodium [Aleve] 220 mg PO BID PRN 09/28/17 02/22/18 History Allergies Allergy/AdvReac Type Severity Reaction Status Date / Time No Known Allergies Allergy Verified 02/22/18 08:30 Surgical - Exam Vital Signs Temp Pulse Resp BP Pulse Ox 97.6 F 77 18 147/84 96 02/22/18 08:31 02/22/18 08:31 02/22/18 08:31 02/22/18 08:31 02/22/18 08:31 - General well developed, no distress - Eyes PERRL - ENT normal pinna - Neck no masses - Respiratory normal expansion - Cardiovascular Rhythm: regular - Abdomen Abdomen: soft, non tender Assessment and Plan Assessment: We'll perform screening colonoscopy.
--- NOTE | 2018-02-22 09:39 | P.OP ---
Date of Procedure: 02/22/18 Preoperative Diagnosis: Screening colonoscopy Postoperative Diagnosis: Diverticulosis Procedure(s) Performed: Home endoscopy Anesthesia: MAC Surgeon: Toan Pérez Pathology: none sent Condition: stable Disposition: PACU Description of Procedure: The patient's placed on the endoscopy table in the lateral position. He received IV sedation. Digital rectal exam was performed which revealed no ebonized. The flexible colonoscope was then placed patient anus and passed throughout the entire colon. The ileocecal valve was visualized. The cecum, ascending and transverse colon appeared normal. In the descending; was mild diverticular changes. The scope was then brought back the rectum and this appeared normal. Scope was withdrawn for patient.
[2018-02-22 10:36] VITALS: BP 142/81; PULSE 71; RESP 16
== END 2018-02-22 10:43 | disposition home or self-care (01) ==
LOC: ORWHC2ENDO 08:10
PROVIDERS: ATTEND Surgery
DX: Z12.11 Encounter for screening for malignant neoplasm of colon (principal); K57.30 Diverticulosis of large intestine without perforation or abscess without bleeding; I25.10 Atherosclerotic heart disease of native coronary artery without angina pectoris; I10 Essential (primary) hypertension; E78.5 Hyperlipidemia, unspecified; M19.90 Unspecified osteoarthritis, unspecified site; Z95.5 Presence of coronary angioplasty implant and graft; Z79.82 Long term (current) use of aspirin; Z79.899 Other long term (current) drug therapy
CPT/HCPCS: J2001; J2704; G0121; 45378

== ENCOUNTER → 2018-02-28 | Outpatient (CLI) | payer MEDICARE ==
[2018-02-28 10:14] LABS: ALT 37 U/L (21-72); AST 30 U/L (17-59)
== END | disposition home or self-care (01) ==
LOC: LABWHC1 09:26
PROVIDERS: ATTEND Orthopaedic Surgery
DX: K74.60 Unspecified cirrhosis of liver (principal)
CPT/HCPCS: 36415; 84450; 84460

== ENCOUNTER → 2018-04-22 | Outpatient (CLI) | payer MEDICARE ==
[2018-04-22 12:57] LABS: ALT 37 U/L (21-72); AST 33 U/L (17-59)
== END | disposition home or self-care (01) ==
LOC: LABWHC1 11:27
PROVIDERS: ATTEND Podiatrist Foot & Ankle Surgery
DX: K74.60 Unspecified cirrhosis of liver (principal)
CPT/HCPCS: 36415; 84450; 84460

== ENCOUNTER → 2018-08-10 | Outpatient (CLI) | payer MEDICARE ==
[2018-08-10 11:59] LABS: Blood Urea Nitrogen 20 mg/dL (9-20)
== END ==
LOC: LABWHC1 11:34
PROVIDERS: ATTEND Nurse Practitioner Acute Care
DX: Z01.812 Encounter for preprocedural laboratory examination (principal)
CPT/HCPCS: 36415; 82565; 84520

== ENCOUNTER 2019-12-23 21:10 | Emergency (ER) | payer MEDICARE ==
[2019-12-23] MEDS ORDERED: Acetaminophen-Codeine 300-30mg TAB PO STA (21:28)
--- NOTE | 2019-12-23 21:47 | XR ---
EXAMINATION TYPE: XR elbow complete RT DATE OF EXAM: 12/23/2019 COMPARISON: NONE HISTORY: Elbow pain TECHNIQUE: 3 views FINDINGS: I see no fracture nor dislocation. There is soft tissue swelling around the elbow joint wit h subcutaneous edema over the posterior distal humerus. I see no evidence of joint effusion. Joint sp aces are fairly normal. IMPRESSION: Soft tissue swelling around the elbow joint. No fracture seen.
--- NOTE | 2019-12-23 21:48 | XR ---
EXAMINATION TYPE: XR forearm RT DATE OF EXAM: 12/23/2019 COMPARISON: NONE HISTORY: Arm pain TECHNIQUE: 3 views FINDINGS: There is some soft tissue swelling around the proximal forearm. Radius and ulna appear inta ct. The wrist joint appears intact. There is soft tissue swelling around the elbow. IMPRESSION: Soft tissue swelling. No fracture seen.
--- NOTE | 2019-12-23 22:13 | ED ---
General Adult HPI - General Chief complaint: Extremity Injury, Upper Stated complaint: RT arm pain Time Seen by Provider: 12/23/19 21:24 Source: patient, RN notes reviewed, old records reviewed Mode of arrival: ambulatory Limitations: no limitations - History of Present Illness Initial comments: 69-year-old male patient presents ED for chief complaint elbow pain. Patient reports that on Sunday he was working on his boat when he stumbled backwards, he did fall to the ground landing on his gluteal region and hitting his right elbow on the ground. Patient complains right elbow pain. Denies any trauma to head or neck. Denies a loss of consciousness. Patient reports that he did have some swelling in the right elbow which has improved her is not having some pain in his right forearm as well. Denies any pain in his back, denies any red flag symptoms. Denies any other complaints at this time. Systemic: Pt denies fatigue, fever/chills, rash. Pt denies weakness, night sweats, weight loss. Neuro: Pt denies headache, visual disturbances, syncope or pre-syncope. HEENT: Pt denies ocular discharge or irritation, otalgia, rhinorrhea, pharyngitis or notable lymphadenopathy. Cardiopulmonary: Pt denies chest pain, SOB, heart palpitations, dyspnea on exertion. Abdominal/GI: Pt denies abdominal pain, n/v/d. : Pt denies dysuria, burning w/ urination, frequency/urgency. Denies new onset urinary or bowel incontinence. MSK: Pt denies myalgia. Neuro: Pt denies new onset weakness, paresthesias. - Related Data Home Medications Medication Instructions Recorded Confirmed Aspirin EC [Ecotrin Low Dose] 81 mg PO DAILY 11/08/16 02/22/18 Atorvastatin [Lipitor] 40 mg PO DAILY 11/08/16 02/22/18 Losartan [Cozaar] 50 mg PO DAILY 11/08/16 02/22/18 HYDROcodone/APAP 7.5-325MG [[place] 1 tab PO Q6HR PRN 09/28/17 02/22/18 7.5-325] Naproxen Sodium [Aleve] 220 mg PO BID PRN 09/28/17 02/22/18 Allergies Allergy/AdvReac Type Severity Reaction Status Date / Time No Known Allergies Allergy Verified 12/23/19 21:16 Review of Systems ROS Statement: Those systems with pertinent positive or pertinent negative responses have been documented in the HPI. ROS Other: All systems not noted in ROS Statement are negative. Past Medical History Past Medical History: Coronary Artery Disease (CAD), Hyperlipidemia, Hypertension, Osteoarthritis (OA) Additional Past Medical History / Comment(s): chronic pain History of Any Multi-Drug Resistant Organisms: None Reported Past Surgical History: Heart Catheterization With Stent, Joint Replacement, Orthopedic Surgery Additional Past Surgical History / Comment(s): Arthroscopy 2 times on the left knee, arthroscopy on the right knee, right total knee arthroplasty, bilateral rotator cuff repair, heart cath with stenting of the left circumflex , COLONOSCOPY Past Anesthesia/Blood Transfusion Reactions: No Reported Reaction Date of Last Stent Placement:: 2014 Past Psychological History: No Psychological Hx Reported Smoking Status: Never smoker - Past Family History Mother Family Medical History: No Reported History Additional Family Medical History / Comment(s): Mother at age 91 with history of hypertension. Father Additional Family Medical History / Comment(s): Father at age 86 with history of hypertension. Brother(s) Additional Family Medical History / Comment(s): Patient has one brother with history of hypertension and osteoarthritis. Patient has one sister with history of CVA. Patient is 3 children, one daughter with electrical issue with her heart, 2 sons and one has hypertension. General Exam - General Exam Comments Initial Comments: Constitutional: NAD, AOX3, Pt has pleasant affect. HEENT: NC/AT, trachea midline, neck supple, no lymphadenopathy. Posterior pharynx non erythematous, without exudates. External ears appear normal, without discharge. Mucous membranes moist. Eyes PERRLA, EOM intact. There is no scleral icterus. No pallor noted. Cardiopulmonary: RRR, no murmurs, rubs or gallops, no JVD noted. Lungs CTAB in anterior and posterior sommer. No peripheral edema. Abdominal exam: Abdomen soft and non-distended. Abdomen non-tender to palpation in all 4 quadrants. Bowel sounds active in LLQ. No hepatosplenomegaly. No ecchymosis Neuro: CN II-XII grossly intact. No nuchal rigidity. No raccon eyes, no verdin sign, no hemotympanum. No cervical spinal tenderness. MSK: Right elbow mildly tender to palpation as well as dorsal forearm. Full active range of motion. Neurovascularly intact. No snuffbox tenderness. Posterior tibialis and radial pulse +2 bilaterally. Sensation intact in upper and lower extremities. Full active ROM in upper and lower extremities, 5/5 stregnth. Limitations: no limitations Course Vital Signs 12/23/19 21:11 Temperature 98.1 F Pulse Rate 80 Respiratory 16 Rate Blood Pressure 143/87 O2 Sat by Pulse 98 Oximetry Medical Decision Making - Medical Decision Making 69-year-old male patient presents ED for chief complaint elbow pain. Patient reports that on Sunday he was working on his boat when he stumbled backwards, he did fall to the ground landing on his gluteal region and hitting his right elbow on the ground. Patient complains right elbow pain. Denies any trauma to head or neck. Denies a loss of consciousness. Patient reports that he did have some swelling in the right elbow which has improved her is not having some pain in his right forearm as well. Denies any pain in his back, denies any red flag symptoms. Denies any other complaints at this time. Patient vital signs are stable, afebrile. Physical exam displayed: Right elbow mildly tender to palpation as well as dorsal forearm. Full active range of motion. Neurovascularly intact. No snuffbox tenderness. Plain films are negative for any fracture. Patient was discharged to follow up with primary care provider will trachea is normal. Case discussed with Dr. Baron. Disposition Clinical Impression: Elbow sprain Disposition: HOME SELF-CARE Condition: Stable Instructions (If sedation given, give patient instructions): Elbow Sprain (ED) Additional Instructions: Follow-up with primary care provider tomorrow. May use Tylenol or Motrin as needed for pain. Return to ER if condition worsens. Is patient prescribed a controlled substance at d/c from ED?: No Referrals: Deedee Iyer MD [Primary Care Provider] - 1-2 days
[2019-12-23 22:54] VITALS: BP 148/91; PULSE 73; RESP 18; TEMP 96
== END 2019-12-23 22:53 | disposition home or self-care (01) ==
LOC: EC 21:10
DX: S53.401A Unspecified sprain of right elbow, initial encounter (principal); I25.10 Atherosclerotic heart disease of native coronary artery without angina pectoris; E78.5 Hyperlipidemia, unspecified; I10 Essential (primary) hypertension; M19.90 Unspecified osteoarthritis, unspecified site; Z79.82 Long term (current) use of aspirin; Z79.899 Other long term (current) drug therapy; Z95.5 Presence of coronary angioplasty implant and graft; Z96.651 Presence of right artificial knee joint; Z98.890 Other specified postprocedural states; W01.0XXA Fall on same level from slipping, tripping and stumbling without subsequent striking against object, initial encounter; Y93.89 Activity, other specified; Y92.814 Boat as the place of occurrence of the external cause
CPT/HCPCS: 99284

== ENCOUNTER → 2020-03-02 | Outpatient (CLI) | payer MEDICARE ==
--- NOTE | 2020-03-02 19:37 | US ---
EXAMINATION TYPE: US thyroid st tissue head/neck DATE OF EXAM: 03/02/2020 COMPARISON: NONE CLINICAL HISTORY: R22.31 Mass Rt upper Limb. Lump inferior to right clavicle No abnormalities seen. IMPRESSION: 1. Normal soft tissue ultrasound. No soft tissue abnormality is identified at the palpable region. 2. If additional evaluation is required, consider CT neck w con
== END | disposition home or self-care (01) ==
LOC: RADUSWWP 16:18
PROVIDERS: ATTEND Family Medicine
DX: R22.31 Localized swelling, mass and lump, right upper limb (principal)
CPT/HCPCS: 76536

== ENCOUNTER → 2020-04-12 | Outpatient (CLI) | payer MEDICARE ==
[2020-04-12 13:59] LABS: HGB 13.4 gm/dL (13.0-17.5); MCH 33.2 pg (25.0-35.0); MCHC 34.2 g/dL (31.0-37.0); MCV 97.1 fL (80.0-100.0); Platelet Count 204 k/uL (150-450); RBC 4.02 m/uL (4.30-5.90); RDW 12.5 % (11.5-15.5); WBC 6.2 k/uL (3.8-10.6)
[2020-04-12 20:30] LABS: African American GFR (CKD) 98.5 (60.0-200.0); Albumin 4.6 g/dL (3.80-4.90); Albumin/Globulin Ratio 2.71 (1.60-3.17); Anion Gap 8.4 mmol/L (4.00-12.00); BUN/Creat Ratio 25.56 Ratio (12.00-20.00); Calcium 9.6 mg/dL (8.7-10.3); Carbon Dioxide 25.6 mmol/L (21.6-31.8); Globulin 1.7 g/dL (1.6-3.3); Potassium 4.8 mmol/L (3.5-5.5); Total Bilirubin 0.5 mg/dL (0.2-1.2); Total Protein 6.3 g/dL (6.2-8.2)
[2020-04-12 20:39] LABS: T4, Free (Free Thyroxine) 0.9 ng/dL (0.80-1.80)
== END | disposition home or self-care (01) ==
LOC: LABWHC1 11:47
PROVIDERS: ATTEND Physician Assistant
DX: G99.0 Autonomic neuropathy in diseases classified elsewhere (principal); I67.1 Cerebral aneurysm, nonruptured; R20.2 Paresthesia of skin
CPT/HCPCS: 36415; 80053; 82607; 84207; 84439; 84443; 84481; 85027

== ENCOUNTER → 2021-12-02 | Outpatient (CLI) | payer MEDICARE ==
--- NOTE | 2021-12-02 14:11 | CT ---
EXAMINATION TYPE: CT abdomen w con DATE OF EXAM: 12/02/2021 COMPARISON: 03/09/2011 INDICATION: Gerd and Generalized abdominal pain DLP: 985 mGycm, Automated exposure control for dose reduction was used. CONTRAST: 100 ml mL of Isovue 300. Study performed with Oral Contrast TECHNIQUE: Axial images were obtained from above the diaphragm to the pubic rami in the axial plane a t 5 mm thick sections. Reconstructed images are reviewed on the computer in the coronal plane. FINDINGS: Limited CT sections are obtained the lung bases. The lung bases are clear. CT ABDOMEN: Liver: Normal Spleen: Normal Pancreas: Normal Adrenal glands: The adrenal glands are normal. Gallbladder: Normal Kidneys: No masses are evident. No hydronephrosis is present. No cysts are present. Delayed images were obtained through the kidneys, which remain unremarkable. Aorta: Vascular calcification is within the aorta. Vascular calcifications within the aorta Inferior vena cava: Normal. Loops of bowel distended with oral contrast. Normal. Oral contrast extends to the distal small bowel. Colon appears normal without contrast. IMPRESSIONS: 1. No suspicious abdomen abnormality to account for pain.
== END | disposition home or self-care (01) ==
LOC: RADCTMAIN 11:30
PROVIDERS: ATTEND Family Medicine
DX: K21.9 Gastro-esophageal reflux disease without esophagitis (principal); R10.84 Generalized abdominal pain
CPT/HCPCS: 82565; 84520; 74160; 36415; Q9967

== ENCOUNTER → 2025-02-05 | Outpatient (CLI) | payer MEDICARE ==
--- NOTE | 2025-02-09 19:40 | MR ---
EXAMINATION TYPE: MR wrist RT wo con DATE OF EXAM: 02/05/2025 1:22 PM COMPARISON: Right forearm radiographs 12/22/2024. CLINICAL INDICATION: Male, 74 years old with history of M77.8 OTHER ENTHESOPATHIES, NOT ELSEWHERE CLA SSIFI; PHH, Right wrist pain, mass with marker placed, swelling and limited movement. TECHNIQUE: Multiplanar multisequence imaging of the wrist. No Gadolinium given. 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 [id number] apposition of the ulna and the lunate/triquetrum with marked subchondral cystic change of the distal ulna and radius and ac companying subchondral edema-like marrow signal. Similar findings can also be seen throughout the sca phoid, lunate, triquetrum, capitate, trapezium, and trapezoid. Additional subchondral cystic change a t the base of the first, second, and fourth metacarpals. DRUJ joint effusion and synovitis. Additiona l radiocarpal and intercarpal joint effusion with marked synovitis/internal debris. Flexor retinaculum: Intact Median nerve: Intact Flexor tendons: Marked cystic tenosynovitis at the level of the distal radius/ul na continuing distally into the hand. Extensor tendons: Longitudinal tearing and tenosynovitis of the extensor carpi ulnar is. Abductors/adductor tendons: Intact Intrinsic carpal ligaments: Complete tear of the scapholunate ligament with proximal migration of th e capitate. Extrinsic carpal ligaments: Not well visualized due to the degree of synovitis. Triangular fibrocartilage complex: Ulnocarpal impaction as above with maceration of the TFC. 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 Soft tissues: Diffuse subcutaneous edema of the dorsal ulnar hand and distal wrist. Additional subcut aneous edema of the radial volar wrist. IMPRESSION: 1. Marked cystic tenosynovitis of the flexor tendons, possibly related to impression #2. 2. 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 3. Ulnocarpal impaction with complete tear of the TFC. 4. DRUJ joint effusion and synovitis. [facility], , 02/09/2025 7:37 PM
== END | disposition home or self-care (01) ==
LOC: RADMRIMAIN 12:39
PROVIDERS: ATTEND Orthopaedic Surgery
DX: M77.8 Other enthesopathies, not elsewhere classified (principal); M65.931 Unspecified synovitis and tenosynovitis, right forearm; M19.031 Primary osteoarthritis, right wrist; M25.441 Effusion, right hand